=== PATIENT | female | born 1960 | race Caucasian/White ===

== ENCOUNTER 2020-01-04 15:14 | Inpatient (IN) ==
[2020-01-04] MEDS ORDERED: ICU PROTOCOL FOR HYPERGLYCEMIA PRN (17:38)
[2020-01-04] MEDS ORDERED: ACETAMINOPHEN 325 MG TAB PO PRN (17:48)
[2020-01-04] MEDS ORDERED: MEROPENEM CONSULT ACITVE PRN (17:52)
--- NOTE | 2020-01-04 17:52 | Critical Care Consultation ---
Date of Consultation January 04, 2020 Assessment & Plan (1) Sepsis: Chest x-ray 01/04/2020 personally reviewed: Portable film, good respiratory effort, right costophrenic angle is blunted, left costophrenic angle is clean, increased cardiac silhouette, increased vascular marking, right upper lobe haziness appreciated. CT chest 01/04/2020 personally reviewed: Increased interstitial marking, cystic bronchiectasis appreciated bilateral upper lobes more on the right side there is consolidative process versus scarring appreciated in the right upper lobe, diffuse groundglass opacity bilaterally, right-sided pleural effusion, and significant mediastinal lymphadenopathy. No previous CAT scan to compare. --Right-sided hydronephrosis Likely secondary to obstruction from kidney stone Urology has been consulted For possible OR today Continue with broad-spectrum antibiotic Follow-up urine culture Follow-up septic work-up, ESR 77 --Right upper lobe pneumonia Patient has some cystic as well as bronchiectatic changes appreciated bilateral upper lobes more on the right side Follow-up nasal MRSA, based on I will decide whether patient will need vancomycin Sputum culture Rapid COVID-19 negative at [facility] 01/04/2020, no lymphopenia Influenza A and B negative --Acute on chronic hypoxic respiratory failure Multifactorial Component of CHF as well as pneumonia Continue with antibiotic Diuretics as tolerated to keep negative balance Follow-up BNP, 2D echo --COPD Active smoker Not taking any inhalers at home Has been on chronic prednisone since May, she states that she is taking 20 mg and gradually titrating down to 10. --Diabetes type 2 Continue with ICU hyperglycemia protocol --Prophylaxis VTE: IPC's as patient might need to go to the OR GI: Protonix Lines: Peripheral Diet: N.p.o. Plan: Continue with antibiotic. Follow-up nasal MRSA, follow-up repeat Covid Follow-up urine culture Give 1 dose of Lasix Follow-up 2D echo I have personally spent 62 minutes of critical care time in the direct management of this patient. This is a life/limb threatening event. This includes time spent evaluating patient, direct bedside care, chart review, placing orders, interpretation of diagnostic studies, discussion with consultants, patient, and family members, as well as other required patient management activities. This time is exclusive of all separately billable procedures, and teaching time and separate from and in addition to any other critical care service time. Please note the above document was generated using voice recognition software. It may contain grammatical, syntax or spelling errors. (2) Hydronephrosis: (3) Chronic respiratory failure with hypoxia: (4) Diabetes: (5) Pneumonia: History of Present Illness Attending Physician: Cristina Lilly DO History of Present Illness 59-year-old female past medical history of diabetes type 2, COPD with chronic hypoxic respiratory failure on 4 L nasal cannula at home, history of kidney stones presented to the ED at [facility] for low back pain. Work-up over there showed right-sided hydronephrosis with increase in size of the kidney stone. DC but do not have urologist over there plan was to transfer the patient here so that she can have stent placement done. COVID-19 rapid done at [facility] was negative. Patient states that she never had back pain like this before. She has history of kidney stones but never like this. Subjective fevers. Denies any cough, no chills. No recent travel history. She had states that she has been home since the Covid started back in April. No headache, no blurry vision, no dizziness, no palpitation. No nausea or vomiting. Social history: Greater than [id number] active smoker, denies any illicit drug use, no alcohol use Allergies Allergy/AdvReac Type Severity Reaction Status Date / Time No Known Allergies Allergy Mild Verified 03/26/03 20:51 Home Medications Home Medications Medication Instructions Recorded Confirmed Type aspirin 81 mg PO 01/04/20 History glimepiride 4 mg PO DAILY 01/04/20 01/04/20 History metformin 1,000 mg PO BID 01/04/20 01/04/20 History prednisone 20 mg PO DAILY 01/04/20 01/04/20 History Patient History Social History Smoking Status: Current every day smoker Cigarettes Per Day: 2; Hx Alcohol Use: Yes Hx Substance Use: No Preferred Language: Faroese Communication Ability: Effective Public Health Microbiologist Required: No Beliefs That Will Affect Care: None Current Living Situation: Spouse Other Information That Helps Us Care for You: No Feels Safe at Home: Yes Safety Concerns: Feels Safe At This Time Assistive Devices: Oxygen - Continuous and Wheelchair Review of Systems Review of Systems: All systems reviewed & are unremarkable except as noted in HPI & below Physical Exam Physical Exam: Constitutional: No acute distress HEENT: EOMI, PERRLA Respiratory system: Decreased air entry bilaterally, mild crackles bilateral lower lobes, no wheeze, no rhonchi CVS: S1-S2 positive, no murmurs or gallops, tachycardia Abdomen: Soft, nontender, nondistended, positive bowel sounds x4, obese, positive CVA tenderness on the right side Extremities: +2 pulses bilaterally radialis/ dorsalis pedis, no cyanosis, +2 pitting edema bilateral lower extremity, more on the right side Neuro: Awake alert oriented x3 Psych: Normal mood and affect, pleasant mood G/U: Positive Stephens Skin: no rashes, warm and dry Lymphatic: no cervical or axillary lymphadenopathy Coding Level of Care Code Critical Care 1st 30-74 mins Diagnoses Sepsis A41.9 Hydronephrosis N13.30 Chronic respiratory failure with hypoxia J96.11 Diabetes E11.9 Pneumonia J18.9 Time Spent (min) 62
[2020-01-04] MEDS ORDERED: ICU PROTOCOL FOR HYPERGLYCEMIA SCH (18:15)
--- NOTE | 2020-01-04 18:15 | XRay Report ---
XR chest 1V portable CLINICAL HISTORY: Shortness of breath COMPARISON STUDY: No previous studies for comparison. FINDINGS: There is no pneumothorax. A small right pleural effusion is present. There is diffuse inter stitial thickening. This also mild right upper lung airspace opacity suggestive of pneumonia. Note is made of cardiomegaly. IMPRESSION: 1. Right upper lung airspace opacity suggestive of pneumonia. Radiographic follow-up to ensure resolu tion is recommended. 2. Diffuse interstitial thickening which may reflect superimposed pulmonary edema or infectious proce ss. 3. Small right pleural effusion. ACT 112: Negative or not required by law. Electronically signed by: Vinod Lyman M.D. 01/04/2020 6:13 PM
[2020-01-04] MEDS ORDERED: MEROPENEM 500 MG in SYRINGE 0 ML IV ONE (18:30)
[2020-01-04 18:40] LABS: Basophils # (auto) 0.02 K/uL (0-0.2); Basophils % (auto) 0.1 %; Eosinophils # (auto) 0.05 K/uL (0-0.5); Eosinophils % (auto) 0.3 %; Hematocrit (blood only) 42.7 % (37-47); Immature Granulocytes # (auto) 0.13 K/uL (0.00-0.02); Immature Granulocytes % (auto) 0.9 %; Lymphocytes # (auto) 1.47 K/uL (1.2-3.4); Lymphocytes % (auto) 9.9 %; Mean Corpuscular Hemoglobin 30.4 pg (25-34); Mean Corpuscular Hgb Conc 32.8 g/dL (32-36); Mean Corpuscular Volume 92.6 fL (80-100); Mean Platelet Volume 10.7 fL (7.4-10.4); Monocytes # (auto) 1.21 K/uL (0.11-0.59); Monocytes % (auto) 8.1 %; Neutrophils # (auto) 12.03 K/uL (1.4-6.5); Neutrophils % (auto) 80.7 %; Platelet Count 387 K/uL (130-400); RDW Coefficient of Variation 15.3 % (11.5-14.5); RDW Standard Deviation 51.4 fL (36.4-46.3); Red Blood Count 4.61 M/uL (4.2-5.4); White Blood Count 14.91 K/uL (4.8-10.8)
[2020-01-04 18:44] LABS: Appearance Urine Turbid (Clear); Bacteria Urine Automated 2+ (Negative); Bilirubin Urine Negative (Negative); Blood Urine 3+ (Negative); Color Urine Yellow; Epithelial Cell Urine Auto >30 /lpf (0-5); Glucose Urine UA Negative (Negative); Ketones Urine Negative (Negative); Leukocyte Esterase Urine 3+ (Negative); Nitrite Urine Negative (Negative); Protein Urine Trace (Negative); Specific Gravity Urine 1.011 (1.000-1.030); Urobilinogen Urine Negative (Negative); WBC Urine Automated >30 /hpf (0-5)
[2020-01-04 19:03] LABS: Albumin Level 2.9 gm/dl (3.4-5.0); BUN Creatinine Ratio 22.9 (10-20); Creatinine Clr Calc Pharmacy 92.1 ml/min; Est GFR (African American) 111.8; Est GFR (Non-African American) 96.4; Potassium 4.1 mmol/L (3.5-5.1)
[2020-01-04 19:04] LABS: Influenza A virus by PCR Negative (Negative); Influenza B virus by PCR Negative (Negative)
[2020-01-04 19:10] LABS: Albumin Globulin Ratio 0.6 (0.9-2); Bilirubin,Total 0.4 mg/dl (0.2-1); C Reactive Protein 7.81 mg/dl (0-0.29); Total Protein 7.9 gm/dl (6.4-8.2)
[2020-01-04] MEDS: ICU ELECTROLYTE REPLACEMENT PROTOCOL SCH (19:20)
[2020-01-04 19:27] LABS: Beta-Hydroxybutyrate 3.01 mg/dl (0.2-2.81)
[2020-01-04] MEDS ORDERED: NovoLIN-R BOLUS FROM BAG IV ONE (19:30)
[2020-01-04] MEDS ORDERED: INSULIN REGULAR 250 UNITS in SODIUM CHLORIDE 0.9% 247.5 ML IV SCH (19:30)
[2020-01-04] MEDS ORDERED: FUROSEMIDE 40 MG in SYRINGE 0 ML IV ONE (19:45)
[2020-01-04] MEDS ORDERED: INSULIN ASPART 100 UNITS/ML 3 ML PEN SC SCH (21:00)
[2020-01-04] MEDS ORDERED: PHARMACY GLYCEMIC MGMT CONSULT PRN (21:47)
[2020-01-04] MEDS: MoRPHine SULFATE 2 MG/ML CARP IV PRN (21:50)
--- NOTE | 2020-01-04 21:55 | History & Physical Report ---
Date of Service January 04, 2020 Assessment & Plan (1) Sepsis: Concern for this at [facility] VSS now s/p zosyn, vanco Continue abx COVID neg at [facility] Flu neg (2) Hydronephrosis: Likely secondary to obstruction from kidney stone Case was reported to have been d/w Dr. Hebert by Dr. Olsen at [facility] prior to transfer For possible OR tonight vs tomorrow Continue with abx Urine cx pending ESR 77 (3) Chronic respiratory failure with hypoxia: Pt has been on home O2 and steroids since April/May Has not had pulm workup due to COVID Now with CHF, PNA Abx, diuretics ECHO pending COPD dx as well, no hx of home inhaler use (4) Diabetes: Insulin drip A1c pending (5) Pneumonia: Noted on CXR Abx as per ICU (6) DVT prophylaxis: As per ICU Admission and Anticipated Discharge Date Admission Date: January 04, 2020 History of Present Illness Primary Care Provider: Tanya Hurd MD Pt was transferred from [facility] today for sepsis and need for urgent urologic eval and tx for obstructing renal stone. Pt states she still has back pain, but better. She had n/v on the way to [facility], but she feels she was car sick. This was not present prior. Pt denies fever, SOB, chest pain, abd pain, n/v/c/d, LE pain or swelling. Pt has been having ongoing SOB requiring O2 for several months. She was started on home O2 and was to have a pulm eval, however this did not happen due to COVID. She states she has not left her home since April. Pt was put on prednisone for these respiratory issues in April, but no improvement. It has not gotten worse either. Pt notes she also passed a stone last week. Pt has been on prednisone and this has caused a lot of issues with her blood sugars. Allergies Allergy/AdvReac Type Severity Reaction Status Date / Time No Known Allergies Allergy Mild Verified 03/26/03 20:51 Home Medications Home Medications Medication Instructions Recorded Confirmed Type aspirin 81 mg PO 01/04/20 History glimepiride 4 mg PO DAILY 01/04/20 01/04/20 History metformin 1,000 mg PO BID 01/04/20 01/04/20 History prednisone 20 mg PO DAILY 01/04/20 01/04/20 History Past Med/Surg History Social History Smoking Status: Current every day smoker Cigarettes Per Day: 2; Hx Alcohol Use: Yes Hx Substance Use: No Preferred Language: Slovak Communication Ability: Effective Partnership Marketing Manager Required: No Beliefs That Will Affect Care: None Current Living Situation: Spouse Other Information That Helps Us Care for You: No Feels Safe at Home: Yes Safety Concerns: Feels Safe At This Time Assistive Devices: Oxygen - Continuous and Wheelchair Review of Systems Review of Systems: Pertinent positives and negatives reviewed in HPI--all others negative Physical Exam Constitutional: WD/WN, vitals as above Eyes: normal visual sweeney by confrontation and + anicteric sclerae Neck: normal visual inspection and trachea midline Respiratory: normal respiratory effort, lungs clear to auscultation Cardiovascular: Rate/Rhythm: regular rate and regular rhythm Extremities: + edema (R>L LE edema) Gastrointestinal (Abdomen): Inspection/Auscultation: abdomen not distended Percussion/Palpation: abdomen soft; abdomen nontender Musculoskeletal: Head/Neck/Chest: normocephalic and head atraumatic peripheral pulses intact Skin: no rashes, warm and dry Neurologic: awake; not confused Speech / Cognition: normal speech Psychiatric: A+Ox3, euthymic affect Results & Data Results & Data ([facility]) Vital Signs (Past 12 Hours) Vital Signs Temp Pulse Pulse Resp BP BP Pulse Ox 01/04/20 21:04 116 H 18 92/76 L 96 01/04/20 21:03 114 H 18 97 01/04/20 21:00 115 H 18 97 01/04/20 20:01 108 H 18 148/86 H 96 01/04/20 20:00 109 H 18 96 01/04/20 19:00 111 H 16 110/82 96 01/04/20 18:03 36.6 C 111 H 16 128/80 91 01/04/20 18:00 111 H 125/75 94 01/04/20 17:41 121 H 128/80 91 Code Status & VTE Plan Code Status Full code VTE Prophylaxis Plan VTE Prophylaxis will be ordered: Yes PG Care Time/CCT Total # of Minutes Spent Total Time Spent with Patient: Total time spent is greater than 50% in coordination of care (as documented) at patient's floor/unit and/or counseling patient: Coding Level of Care Code 59503 Initial Inpt Care Lvl 3 Diagnoses Sepsis A41.9 Hydronephrosis N13.30 Chronic respiratory failure with hypoxia J96.11 Diabetes E11.9 Pneumonia J18.9 DVT prophylaxis Z29.9
[2020-01-04] MEDS ORDERED: INSULIN GLARGINE SOLOSTAR 100 UNITS/ML 3 ML PEN SC ONE (22:00)
[2020-01-05] MEDS: MEROPENEM 500 MG in SYRINGE 0 ML IV SCH ×4 (00:08→17:58)
[2020-01-05] MEDS: MoRPHine SULFATE 2 MG/ML CARP IV PRN ×5 (00:50→17:28)
[2020-01-05] MEDS ORDERED: DEXTROSE 50% 50 ML SYRINGE IV ONE (00:57)
[2020-01-05] MEDS: INSULIN ASPART 100 UNITS/ML 3 ML PEN SC SCH ×4 (04:03→20:43)
[2020-01-05 05:02] LABS: Basophils # (auto) 0.04 K/uL (0-0.2); Basophils % (auto) 0.3 %; Eosinophils # (auto) 0.23 K/uL (0-0.5); Eosinophils % (auto) 1.7 %; Hematocrit (blood only) 40.1 % (37-47); Hemoglobin 13.2 g/dL (12.0-16.0); Immature Granulocytes # (auto) 0.16 K/uL (0.00-0.02); Immature Granulocytes % (auto) 1.2 %; Lymphocytes # (auto) 2.32 K/uL (1.2-3.4); Lymphocytes % (auto) 16.8 %; Mean Corpuscular Hemoglobin 30.1 pg (25-34); Mean Corpuscular Hgb Conc 32.9 g/dL (32-36); Mean Corpuscular Volume 91.3 fL (80-100); Mean Platelet Volume 10.2 fL (7.4-10.4); Monocytes # (auto) 1.51 K/uL (0.11-0.59); Monocytes % (auto) 10.9 %; Neutrophils # (auto) 9.59 K/uL (1.4-6.5); Neutrophils % (auto) 69.1 %; Platelet Count 359 K/uL (130-400); RDW Standard Deviation 50.3 fL (36.4-46.3); Red Blood Count 4.39 M/uL (4.2-5.4); White Blood Count 13.85 K/uL (4.8-10.8)
[2020-01-05] MEDS: ONDANSETRON INJ 2 MG/ML 2 ML VIAL IV PRN (05:27)
[2020-01-05 05:31] LABS: BUN Creatinine Ratio 27.7 (10-20); Calcium 8.9 mg/dl (8.5-10.1); Creatinine Clr Calc Pharmacy 97.9 ml/min; Est GFR (Non-African American) 98.4; Magnesium 1.7 mg/dl (1.8-2.4); Phosphorus 4.1 mg/dl (2.5-4.9); Potassium 3.7 mmol/L (3.5-5.1)
[2020-01-05] MEDS: ICU ELECTROLYTE REPLACEMENT PROTOCOL SCH ×2 (05:42→17:54)
[2020-01-05] MEDS ORDERED: MAGNESIUM SULFATE / D5W 1 GM/100 ML BAG IV STA (05:50)
[2020-01-05] MEDS ORDERED: POTASSIUM CHLORIDE / WTR 10 MEQ/100 ML PLCT IV STA (05:50)
[2020-01-05] MEDS ORDERED: MAGNESIUM SULFATE 4GM / WTR 100 ML BAG IV ONE (05:50)
--- NOTE | 2020-01-05 05:55 | Critical Care Progress Note ---
Date of Service January 05, 2020 Assessment & Plan (1) Chronic respiratory failure with hypoxia: Reason Critically Ill: 59 yo F PMHx significant for DM2, nephrolithiasis, COPD on 4LNC at baseline, current smoker with 30 pack year history who was admitted from [facility] for obstructive nephrolithiasis, pneumonia, and sepsis. Neuro - [facility] ICU: negative Sedation: none Analgesia: morphine 2mg IV q4h, acetaminophen 650 PO q4h - No focal neurologic deficits. No neurologic concerns at this time. Cardiac - - No notable cardiac history. - On 4LNC at baseline due to COPD. - No increased oxygen demand in hospital, however imaging with findings suggestive of fluid overload. - Echo performed which showed LVEF 55-60%, no regional wall motion abnormalities, normal RV function, no significant valvular pathology. - With improvement in peripheral edema and lung exam with diuretics. - Lasix 40mg IV one today. Respiratory - Chronic hypoxic respiratory failure: - Patient is currently an active smoker. - On 4LNC at baseline for COPD. - Continues to saturate well on baseline 4LNC. - On chronic prednisone therapy; weaning as below. - Continue Anoro/Ellipta, fluticasone inhalers daily. RUL Pneumonia: - On admission with CXR showing a right upper lung airspace opacity suggestive of pneumonia, as well as diffuse interstitial thickening (pulmonary edema vs. infection). - CT Chest reviewed by Dr. Quezada: - Increased interstitial markings and cystic bronchiectasis appreciated in bilateral upper lobes more prominent on the right side. Consolidative process versus scarring appreciated in the right upper lobe. Diffuse groundglass opacity bilaterally. Right-sided pleural effusion. Notable mediastinal lymphadenopathy. - Nasal MRSA negative. Influenza A and B negative. - Sputum culture pending. - Currently on meropenem for both complicated UTI and suspected pneumonia. GI - - NPO for now for OR later today. Resume DM2 diet after returning from OR. - GI prophylaxis with IV H2 luba until no longer NPO. RENAL/LYTES - Hypokalemia/Hypomagnesemia: - K 3.7 today, electrolyte replacement per protocol with added 20 IV given Lasix dosing. - Mg 1.7, given 4g Mg. Will start Mag Oxide 400mg qHS. - Daily BMP, replace lytes as needed per protocol. Complicated UTI, hydronephrosis: - On imaging at [facility] with obstructing right UPJ stone with moderate hydronephrosis. - [facility] cultures: BCx no growth after 24 hours; UCx >100,000 colonies E. coli, sensitivities to follow. - Currently on meropenem for UTI coverage, continue for now until UCx sensitivities. - R obstructive nephrolithiasis: - Transfer from [facility] for Urology intervention. - Found on imaging at outside site to have large obstructing 2.7 cm right ureteropelvic junction stone with moderate amount of hydronephrosis. - Urology consulted and appreciate recommendations. - To OR for cystoscopy, right retrograde pyelogram and right stent placement today. - Continue meropenem pending UCx sensitivities. ENDO - DM2: - At home on glimepiride 4mg daily, metformin 1000mg BID. - A1c this admission 10.9; this is in the setting of having been on prednisone daily for a significant amount of time for COPD. - Holding home DM2 medications. Continue ICU hyperglycemia protocol. - DM2 diet when no longer NPO; adaptive physical educator consult placed. - Patient will likely need medication adjustment for tighter BSG control prior to discharge. Secondary adrenal insufficiency: - Patient has been on long-term steroid therapy for COPD, likely resulting in secondary adrenal insufficiency. - On admission was on prednisone 20mg daily. Will start taper while inpatient as follows: - Have decreased prednisone to 15mg daily for one week. One week increments following of 12mg daily, 10mg daily, then 5mg daily ongoing following that. - Suspect patient will need chronic steroid therapy indefinitely at this point due to long-standing use. HEME - - Stable H&H. - Holding anticoagulation in setting of OR today. ID - Sepsis 2/2 UTI with obstructive nephrolithiasis: - Met criteria for sepsis on arrival to hospital due to tachycardia and elevated WBC count. - Urologic intervention as above for obstructive renal calculus. - Treatment with meropenem for complicated UTI. UCx currently growing >100,000 colonies E. coli, sensitivities to follow. - Continue to monitor fever curve. Patient afebrile since arrival. - Patient is hemodynamically stable and well-appearing, though having breakthrough pain. INTEGUMENTARY - - No present concerns. LINES/IV ACCESS - - PIVs intact. DVT PROPHYLAXIS - - SCDs, holding medical prophylaxis in the setting of OR later today. Code Status: FULL CODE Thank you for the consult. Please see Dr. Olsen's documentation for any changes to care plan. (2) Obstruction of right ureteropelvic junction (UPJ) due to stone: (3) Diabetes: (4) Hydronephrosis: (5) Sepsis: (6) Smoker: (7) Obesity: Admission and Anticipated Discharge Date Admission Date: January 04, 2020 Supervising Physician Co-Signing Physician Notes Dr. Diaz was resident physician during care of patient. I separately evaluated patient for rodriguez portions of the history and the exam. I was present during the critical portion of medical decision making, and I discussed the case with the resident. I generally agree with the findings and plan. Patient's hemodynamics have improved, of significant note the procalcitonin was within normal limits, I do not believe the patient is septic, she does show evidence of an E. coli urinary tract infection based off culture results from [facility] we will continue antibiotics for a complicated urinary tract infection because she is ultimately requiring instrumentation and a stent placement for her right hydroureter secondary to nephro lithiasis. She has been diuresing, the patient had already diuresed approximately 2 L prior to her echocardiogram, the right ventricle was not well visualized and while the wall motion appeared to be normal I still believe the patient is at risk for cor pulmonale, her IVC did show change with respiration however I think that also is obscured by the fact she diuresed over 2 L. Chronic respiratory failure of the patient is likely related to long-term tobacco use, there may still be a superimposed infection. As the leading concern is infection and she needs an operative intervention we will continue to hold anticoagulation which point I would consider prophylaxis or even possibly therapeutic anticoagulation because malignancy is in the differential, however with her negative troponin from the outside facility and an echo that did not show evidence of right ventricular dysfunction in the setting of improved hemodynamics with diuresis I think pulmonary embolism is rather unlikely, diuretics may be useful to increase flow through the pulmonary vascular bed which the right heart is failing however a hemodynamically significant pulmonary embolism should require a right atrial pressure greater than 8 as noted on the echo and would also likely have volume size changes. Patient remaining critically ill, awaiting stent placement. Subjective Patient without acute events overnight. Mild tachycardia, saturating well on baseline 4LNC. Comfortable while lying flat on first interview, but later in AM asked for pain medication. Does not endorse increased SOB, CP, abdominal pain, nausea or vomiting. In good spirits this AM. For OR by Urology later today. Review of Systems Review of Systems: All systems reviewed & are unremarkable except as noted in HPI & below Constitutional: no fever, no chills and no malaise Respiratory: no cough and no dyspnea Cardiovascular: no chest pain, no palpitations and no edema Gastrointestinal: no abdominal pain, no constipation and no diarrhea/loose stools Genitourinary: no dysuria and no hematuria Musculoskeletal: + back pain (breakthrough pain between morphine doses) Physical Exam Physical Exam: VITAL SIGNS - Vital signs and nursing notes were reviewed. GENERAL - 59 yo F, well developed, well nourished, in no acute distress SKIN - Without rashes. EYES - PERRL. Sclera anicteric. Palpebral conjunctiva pink and moist with no injection noted. EARS - No deformities of external structures noted on gross examination bilatera lly. NOSE - Midline and without cyanosis. No epistaxis or purulent drainage noted. MOUTH/OROPHARYNX - No perioral cyanosis. NECK - Supple to palpation. No nuchal rigidity. LUNGS - Lungs with mild basilar crackles, no wheezes. On 4LNC saturating well. CARDIAC - Tachycardia, regular rhythm. No murmur, rubs, or gallops appreciated. ABDOMEN - Soft, nontender, nondistended, normal bowel sounds. EXTREMITIES - No clubbing or peripheral cyanosis. 1+ peripheral edema. Radial and dorsalis pedis pulses palpated bilaterally. NEUROLOGIC - No focal neurological deficits noted on exam. Results & Data Results & Data ([facility]) Vital Signs (Past 12 Hours) Vital Signs Temp Pulse Pulse Resp BP BP Pulse Ox 01/05/20 04:00 36.6 C 103 H 106/69 96 01/05/20 03:00 107 H 102/64 94 01/05/20 02:29 107 H 115/74 95 01/05/20 02:01 106 H 115/74 95 01/05/20 02:00 102 H 95 01/05/20 01:00 112 H 91/71 L 94 01/05/20 00:00 114 H 18 112/71 95 01/04/20 23:00 117 H 20 97/67 L 96 01/04/20 22:01 122 H 118/69 94 01/04/20 22:00 121 H 22 94 01/04/20 21:45 115 H 105/74 95 01/04/20 21:04 116 H 18 92/76 L 96 01/04/20 21:03 114 H 18 97 01/04/20 21:00 115 H 20 97 01/04/20 20:01 108 H 18 148/86 H 96 01/04/20 20:00 109 H 20 96 01/04/20 19:00 111 H 18 110/82 96 01/04/20 18:03 36.6 C 111 H 16 128/80 91 01/04/20 18:00 111 H 125/75 94 Critical Care Time Critical Care Time: Yes Total Critical Care Time: 40 I have personally spent 40 minutes of critical care time in the direct management of this patient. This is a life/limb threatening event. This includes time spent evaluating patient, direct bedside care, chart review, p lacing orders, interpretation of diagnostic studies, discussion with consultants, patient, and/or family members regarding treatment decisions, as well as other required patient management activities. This time is exclusive of all separately billable procedures, and teaching time and separate from and in addition to any other critical care service time. Resident Activity Tracking Resident Involvement: Resident Care Provided Care Provided: Adult [facility] Medicine
[2020-01-05] MEDS ORDERED: POTASSIUM CHLORIDE CRTAB 20 MEQ TABCR PO ONE ×2 (06:05→10:00)
[2020-01-05] MEDS: MAGNESIUM SULFATE / D5W 1 GM/100 ML BAG IV SCH ×4 (06:18→11:53)
[2020-01-05 06:50] LABS: Estimated Average Glucose 266 mg/dl; Hemoglobin A1C 10.9 % (4.5-5.6)
[2020-01-05] MEDS ORDERED: predniSONE 5 MG TAB PO ONE (07:15)
--- NOTE | 2020-01-05 07:49 | Urology Consultation ---
Date of Consultation January 05, 2020 Assessment & Plan (1) Obstruction of right ureteropelvic junction (UPJ) due to stone: (2) Sepsis: 59 year-old female patient, with multiple comorbidities, admitted with suspected UTI, sepsis, and lower back pain secondary to large obstructing 2.7 cm right UPJ stone with moderate amount of hydronephrosis. -Patient afebrile. -Labs reviewed - white count elevated, creatinine normal. -Urine and blood cultures pending, continue with broad spectrum IV antibiotics and supportive care. -Keep NPO. Findings reviewed with Dr. Colbert. Given her intractable lower back pain, suspected UTI and sepsis, in the context of an obstructing 2.[address] one, will proceed with OR for cystoscopy, right retrograde pyelogram and right stent placement. Risks and benefits to be reviewed with patient by Dr. Colbert. OR notified. Preoperative CXR in chart. Patient currently covered with routine IV Meropenem preoperatively. ATTENDING NOTE: Agree with note. Independently evaluated and assessed and agree with findings and documentation. Major complaint is bladder pain and severe back pain that comes in waves and travels down middle of back down to stomach and flank. Agree with exam. Risks and benefits discussed at length for procedure. These include bleeding, infection, injury to surrounding tissues or organs, and risks associated with anesthesia. Patient states understanding and agrees to proceed. Will sign consent and schedule. Plan for cystoscopy with right stent placement. History of Present Illness Reason for Consultation: Obstructing stone Attending Physician: Cristina Lilly DO History of Present Illness 59 year-old female patient, with past medical history of diabetes type 2, COPD with chronic hypoxic respiratory failure on 4 L nasal cannula at home, and history of kidney stones, admitted as a transfer from [facility] secondary to large obstructing right UPJ stone. Patient initially presented to [facility] with intractable lower back pain with associated nausea/vomiting. Urology consulted due to obstructing right UPJ stone. Patient does have known history of kidney stones, passed a stone spontaneously last week. Followed with Dr. Zheng many years ago for urology, has required lithotripsy in the past. No known family history of kidney stones. Chart review: Afebrile BP 106/69 Wbc 13.85 Hgb 13.2 Creatinine 0.64 Urinalysis +2 leukocytes, positive nitrates, >100 wbc, >100 rbc, positive bacteria. Urine and blood cultures pending. Currently on IV Meropenem. Imaging: CT abd/pelvis reviewed and notable for 2.7 cm obstructing right UPJ stone with moderate right hydronephrosis. Patient currently feeling better since hospital admission. She reports her breathing has improved, continues on 4L oxygen via Nasal Cannula. Does continue to have on-going lower back pain. Pain at tolerable level with IV Morphine. Did have associated nausea and vomiting on admission however she states she is no longer experiencing these symptoms. Denies abdominal pain. Denies fevers or chills. States she did have hematuria and dysuria prior to catheter insertion. Also experienced urinary urgency/frequency. Tolerating catheter well without pain. She has not had anything to eat or drink since midnight. Denies additional urologic concerns today. Allergies Allergy/AdvReac Type Severity Reaction Status Date / Time No Known Allergies Allergy Mild Verified 03/26/03 20:51 Home Medications Home Medications Medication Instructions Recorded Confirmed Type aspirin 81 mg PO 01/04/20 History glimepiride 4 mg PO DAILY 01/04/20 01/04/20 History metformin 1,000 mg PO BID 01/04/20 01/04/20 History prednisone 20 mg PO DAILY 01/04/20 01/04/20 History Patient History Medical History Chronic respiratory failure with hypoxia Diabetes Obesity Smoker Social History Smoking Status: Current every day smoker Cigarettes Per Day: 2; Hx Alcohol Use: Yes Hx Substance Use: No Preferred Language: Icelandic Communication Ability: Effective Superintendent Terminal Required: No Beliefs That Will Affect Care: None Current Living Situation: Spouse Other Information That Helps Us Care for You: No Feels Safe at Home: Yes Safety Concerns: Feels Safe At This Time Assistive Devices: Oxygen - Continuous Review of Systems Constitutional: as per Subjective / HPI; no fever and no chills Eyes: no problem reported Ear, Nose, Mouth, Throat: no dizziness Respiratory: as per Subjective / HPI Cardiovascular: no chest pain and no edema Gastrointestinal: as per Subjective / HPI Genitourinary: as per Subjective / HPI Musculoskeletal: as per Subjective / HPI Neurologic: no dizziness Endocrine: no fatigue Hematologic / Lymphatic: no easy bleeding and no easy bruising Physical Exam Constitutional: well developed and well nourished; no acute distress and not ill appearing ENMT: Ears: no external ear abnormality Nose: no external nose abnormality Neck: normal visual inspection and trachea midline Respiratory: normal respiratory effort and able to speak in complete sentences; no respiratory distress and no audible wheezes Currently on 4L Oxygen via nasal cannula. Cardiovascular: Extremities: no calf tenderness and no edema Gastrointestinal (Abdomen): Inspection/Auscultation: abdomen normal to inspection; abdomen not distended Percussion/Palpation: abdomen soft; abdomen nontender and no guarding Musculoskeletal: Pain to lower lumbar spine with palpation. Skin: No visible rashes, lesions, or wounds noted. Neurologic: moves all extremities and awake Psychiatric: Orientation: alert, oriented x 3 and cooperative Affect: euthymic affect Genitourinary: no CVA tenderness Stephens catheter intact draining concentrated yellow urine. Results & Data ([facility]) Vital Signs (Past 12 Hours) Vital Signs Temp Pulse Resp BP Pulse Ox 01/05/20 04:00 36.6 C 103 H 106/69 96 01/05/20 03:00 107 H 102/64 94 01/05/20 02:29 107 H 115/74 95 01/05/20 02:01 106 H 115/74 95 01/05/20 02:00 102 H 95 01/05/20 01:00 112 H 91/71 L 94 01/05/20 00:00 114 H 18 112/71 95 01/04/20 23:00 117 H 20 97/67 L 96 01/04/20 22:01 122 H 118/69 94 01/04/20 22:00 121 H 22 94 01/04/20 21:45 115 H 105/74 95 01/04/20 21:04 116 H 18 92/76 L 96 01/04/20 21:03 114 H 18 97 01/04/20 21:00 115 H 20 97 01/04/20 20:01 108 H 18 148/86 H 96 01/04/20 20:00 109 H 20 96 PG Care Time/CCT Total # of Minutes Spent Total Time Spent with Patient: Total time spent is greater than 50% in coordination of care (as documented) at patient's floor/unit and/or counseling patient: Coding Level of Care Code 15324 Inpt Consult Level 4 Diagnoses Obstruction of right ureteropelvic junction (UPJ) due to stone N20.1 Sepsis A41.9
[2020-01-05] MEDS: FLUTICASONE FUROATE 100MCG 14 PUFFS/INHALER INH SCH (08:07)
[2020-01-05] MEDS: UMECLIDINIUM/VILANTEROL 62.5/25MCG 7 PUFFS/INHALER INH SCH (08:07)
[2020-01-05] MEDS ORDERED: COUGH DROP (SUGAR FREE) LOZ 24 LOZ/1 BOX BUCCAL ONE (10:09)
[2020-01-05] MEDS ORDERED: FUROSEMIDE 40 MG in SYRINGE 0 ML IV ONE (10:15)
[2020-01-05] MEDS: POTASSIUM CHLORIDE / WTR 10 MEQ/100 ML PLCT IV SCH ×2 (10:32→11:46)
[2020-01-05] MEDS ORDERED: fentaNYL citrate 100 MCG/2 ML VIAL IV PRN (11:57)
[2020-01-05] MEDS ORDERED: ONDANSETRON INJ 2 MG/ML 2 ML VIAL IV PRN (11:57)
[2020-01-05] MEDS ORDERED: ePHEDrine sulfate 50 MG/ML AMP IV PRN (11:57)
[2020-01-05] MEDS ORDERED: PHENYLEPHRINE 100MCG/ML 5ML SYR IV PRN (11:57)
[2020-01-05] MEDS ORDERED: ATROPINE SULFATE 0.1 MG/ML 10ML SYR IV PRN (11:57)
[2020-01-05] MEDS ORDERED: HYDROmorphone INJ 1 MG/ML SYRINGE IV PRN (11:57)
[2020-01-05] MEDS ORDERED: MEPERIDINE HCL 25 MG/ML CARP/VIAL IV PRN (11:57)
[2020-01-05] MEDS ORDERED: LABETALOL HCL IV 5 MG/ML 20ML IV PRN (11:57)
--- NOTE | 2020-01-05 11:59 | Anesthesiology Consultation ---
Date of Service January 05, 2020 Covid 19 negative on 01/05/20. Assessment & Plan (1) Encounter for pre-operative examination: (2) Encounter for pre-operative examination: Chart Review Chart Review: Acceptable Risk for Surgery and Patient NOT seen in Pre Admission Testing Consults Requested none History Surgery Operation Date: 01/05/20 13:35 Proposed Procedures p Cystoscopy, Right Stent Insertion - Earnest Colbert, Height/Weight Height: 5 ft Weight: 91.9 kg Allergies Allergy/AdvReac Type Severity Reaction Status Date / Time No Known Allergies Allergy Mild Verified 03/26/03 20:51 Medications Home Medications Medication Instructions Recorded Confirmed Last Taken aspirin 81 mg PO 01/04/20 Unknown glimepiride 4 mg PO DAILY 01/04/20 01/04/20 Unknown metformin 1,000 mg PO BID 01/04/20 01/04/20 Unknown prednisone 20 mg PO DAILY 01/04/20 01/04/20 Unknown Active Medications Generic Name Dose Route Start Last Admin Trade Name Freq PRN Reason Stop Dose Admin Fluticasone Furoate 1 puffs 01/05/20 09:00 01/05/20 08:07 Fluticasone Furoate 100mcg 14 Puffs/Inhaler INH 02/04/20 08:59 1 puffs DAILY LOBITO Administration Meropenem 500 mg/ Syringe 10 mls @ 2 mls/min 01/05/20 00:00 01/05/20 11:48 IV 01/14/20 17:59 2 mls/min Q6H LOBITO Administration Protocol Insulin Aspart 0 units 01/05/20 03:00 01/05/20 11:53 Insulin Aspart 100 Units/Ml 3 Ml Pen SC 02/04/20 02:59 3 units Q6 LOBITO Administration Protocol Miscellaneous 1 ea 01/04/20 18:00 01/05/20 05:42 Icu Electrolyte Replacement Protocol N/A 01/11/20 17:59 1 ea BID@18 LOBITO Administration Protocol Morphine Sulfate 2 mg 01/04/20 17:48 01/05/20 14:01 Morphine Sulfate 2 Mg/Ml Carp IV 01/18/20 17:47 2 mg Q4 PRN Administration Pain Ondansetron HCl 4 mg 01/05/20 05:21 01/05/20 05:27 Ondansetron Inj 2 Mg/Ml 2 Ml Vial IV 02/04/20 05:20 4 mg Q4H PRN Administration Nausea Umeclidinium/Vilanterol 1 puffs 01/05/20 09:00 01/05/20 08:07 Umeclidinium/Vilanterol 62.5/25mcg 7 Puffs/Inhaler INH 02/04/20 08:59 1 puffs DAILY LOBITO Administration Past Medical History Medical History Chronic respiratory failure with hypoxia Diabetes Obesity Smoker Social History Smoking Status: Current every day smoker tobacco type: cigarettes Smoking cigarettes per day: 2 Hx Alcohol Use: Yes alcohol intake frequency: holidays/special occasions only Hx Substance Use: No Physical Exam Vital Signs Last Vital Signs Temp 36.9 C 01/05/20 12:20 Pulse 113 H 01/05/20 13:01 Resp 20 01/05/20 12:20 BP 124/77 01/05/20 13:01 Pulse Ox 93 01/05/20 13:01 Testing Laboratory Results 01/05/20 04:39 01/05/20 04:39 Hemoglobin A1c 10.9 % (4.5-5.6) H 01/05/20 04:39 Urine Color Yellow 01/04/20 18:10 Urine Appearance Turbid (Clear) A 01/04/20 18:10 Urine pH 6.0 (4.5-7.5) 01/04/20 18:10 Ur Specific [place] 1.011 (1.000-1.030) 01/04/20 18:10 Urine Protein Trace (Negative) H 01/04/20 18:10 Urine Glucose (UA) Negative (Negative) 01/04/20 18:10 Urine Ketones Negative (Negative) 01/04/20 18:10 Urine Nitrite Negative (Negative) 01/04/20 18:10 Ur Leukocyte Esterase 3+ (Negative) H 01/04/20 18:10 Urine WBC (Auto) >30 /hpf (0-5) H 01/04/20 18:10 Urine RBC (Auto) 10-30 /hpf (0-4) H 01/04/20 18:10 U Hyaline Cast (Auto) 5-10 /lpf (0-5) H 01/04/20 18:10 U Epithel Cells (Auto) >30 /lpf (0-5) H 01/04/20 18:10 Urine Bacteria (Auto) 2+ (Negative) H 01/04/20 18:10 01/04/20 18:10 Urine Culture - Final Urine,Clean Catch Three types of organisms present, all moderate counts. Repeat collection recommended. No further identifications or sensitivities to follow. 01/05/20 01/05/20 11:52 03:07 POC Glucose 221 H 108 H Chest X-Ray Date: 01/04/20 XR chest 1V portable CLINICAL HISTORY: Shortness of breath COMPARISON STUDY: No previous studies for comparison. FINDINGS: There is no pneumothorax. A small right pleural effusion is present. There is diffuse interstitial thickening. This also mild right upper lung airspace opacity suggestive of pneumonia. Note is made of cardiomegaly. IMPRESSION: 1. Right upper lung airspace opacity suggestive of pneumonia. Radiographic follow-up to ensure resolution is recommended. 2. Diffuse interstitial thickening which may reflect superimposed pulmonary edema or infectious process. 3. Small right pleural effusion. ACT 112: Negative or not required by law. Electronically signed by: Vinod Lyman M.D. 01/04/2020 6:13 PM Dictated: 01/04/201811Transcribed: 01/04/201811
--- NOTE | 2020-01-05 12:10 | XCELERA ---
[id number]
--- NOTE | 2020-01-05 12:24 | XRay Report ---
KUB HISTORY: Follow up study in a patient with renal calculi Right UPJ stone COMPARISON: CT chest, abdomen pelvis from outside hospital 01/04/2020. FINDINGS: Gas-filled loops of large and small bowel with moderate fecal retention of the right hemico king. The right renal shadow is obscured by bowel gas and colonic stool. Left renal calculi redemonst rated measuring up to 4 mm. No definite ureteral calculi identified. No pneumoperitoneum or pneumatos is. Degenerative changes of the spine, pelvis and hips. No fracture. IMPRESSION: 1. Limited exam secondary to obscuring bowel gas. 2. Left nephrolithiasis without ureteral calculi identified. 3. The known large right renal calculi are better seen on comparison CT. ACT 112: Negative or not required by law. The above report was generated using voice recognition software. It may contain grammatical, syntax o r spelling errors. Electronically signed by: Waylon Menard M.D. 01/05/2020 12:23 PM
[2020-01-05] MEDS ORDERED: INSULIN GLARGINE SOLOSTAR 100 UNITS/ML 3 ML PEN SC ONE ×2 (13:00→17:00)
--- NOTE | 2020-01-05 13:32 | Pharmacy Report ---
Pharmacy Glycemic Short Note 2 - Date of Service January 05, 2020 - Glycemic Short BSG Results (Last 24 hours): 01/04/20 01/04/20 01/04/20 17:54 17:55 18:21 Glucose 303 H* POC Glucose 309 H* 336 H* 01/04/20 01/04/20 01/04/20 20:24 21:33 22:36 Glucose POC Glucose 213 H 185 H 175 H 01/04/20 01/05/20 01/05/20 23:31 00:48 01:10 Glucose POC Glucose 153 H 95 102 H 01/05/20 01/05/20 01/05/20 03:07 04:39 11:52 Glucose 112 H POC Glucose 108 H 221 H OUTPATIENT ANTIDIABETIC REGIMEN: * metformin, glimepiride ASSESSMENT: * 59 year-old female patient, with multiple comorbidities, admitted with suspected UTI, sepsis, and lower back pain secondary to large obstructing stone/hydronephrosis. * Type 2 diabetic managed only on oral agents at home. A1c on admission elevated at 10.9% * Initially started on insulin drip yesterday, mi'ed after about ~3-4 hours (running at 3.5 units/hr) * BSGs overnight on lower end of range 90-100s. BSG this AM 108 mg/dL - plan to hold basal * Lunch BSG trending up to 221 mg/dL, however patient now started on prednisone which likely is contributing to BSG value. Patient NPO for OR today. Anticipate BSGs to continue to trend up as now behind with steroids started. Plan to give basal 10 units x 1 now before OR and add scale for basal at HS PLAN FOR INPATIENT GLYCEMIC CONTROL: * Hold outpatient oral diabetes medications * Basal insulin * Lantus 10 units x 1 * then Lantus 10-15 units SQ BID * Bolus insulin * NovoLog per scale ACHS or Q6hrs while NPO * Goal Range: Low 120 mg/dL - High 160 mg/dL * Correction Factor: 20 mg/dL/unit * Nutritional / Prandial insulin per carb ratio of 1 unit per 7 grams CHO consumed PLAN FOR DISCHARGE: * tbd
[2020-01-05] MEDS ORDERED: fentaNYL citrate 100 MCG/2 ML VIAL ONE (15:22)
[2020-01-05] MEDS ORDERED: KETAMINE 50 MG/5 ML SYRINGE ONE (15:28)
[2020-01-05] MEDS ORDERED: PROPOFOL IV EMULSION 10 MG/ML 20 ML VIAL IV ONE (15:48)
[2020-01-05] MEDS ORDERED: ONDANSETRON INJ 2 MG/ML 2 ML VIAL ONE (15:48)
[2020-01-05] MEDS ORDERED: LIDOCAINE HCL 2% 2 ML VIAL/AMP(20MG/ML) INFIL ONE (15:48)
--- NOTE | 2020-01-05 15:52 | Operative Report ---
PG Post Operative Report Pre & Post Diagnosis Operation Date: 01/05/20 13:35 Pre-Op Diagnosis: SEPSIS, RIGHT PYELONEPHRITIS, OBSTRUCTING STONE Post-Op Diagnosis: SEPSIS, RIGHT PYELONEPHRITIS, OBSTRUCTING STONE I identified the patient and participated in the time-out.: Yes Procedure Operation Date: 01/05/20 13:35 Actual Procedures p Cystoscopy, Right retrograde pyelogram and Stent Insertion - Earnest Colbert, Surgeon Earnest Colbert, II, DO Dolly Driver None Estimated Blood Loss 1 Findings Consistent with Post-Op Diagnosis Stent placed in good position. Specimens None Drains 6 Fr Multilength 20 Fr Silicon catheter Anesthesia Type MAC Complications none Disposition Disposition: Recovery Room Indications Patient with obstruction. Risks and benefits discussed at length. Description of Procedure Patient was consented and brought back to the operating room. Patient was placed under anesthesia in the supine position and moved to the dorsal lithotomy position. Patient was prepped and draped in the regular sterile fashion. A time out was completed. A 30degree Cystoscope was placed into the bladder and the entire bladder was examined. The UO's were identified. The UO was cannulized with a catheter and a retrograde pyelogram was completed. A wire was then placed. With the wire in place, a 6 Fr Double J stent was placed. It was confirmed with fluoroscopy. With the stent in place, the bladder was emptied. The scope was removed. A 20 Fr Catheter was placed. The patient was cleaned, aroused from anesthesia, and transferred to the pacu in stable condition having tolerated the procedure well with no complications. I was present and participated in all aspects of the procedure. The patient will be monitored in the PACU until transferred. I attest to the content of the Intraoperative Record and any orders documented therein. Any exceptions are noted below.
--- NOTE | 2020-01-05 16:05 | Fluoroscopy Report ---
INTRAOPERATIVE RADIOGRAPHS CLINICAL HISTORY: Right-sided laser lithotripsy and ureteral stent placement. Fluoroscopy time: 20 seconds FINDINGS: 2 spot fluoroscopic views of the right abdomen are correlated with KUB dated 01/05/2020. The images show the proximal and distal ends of a right ureteral stent in appropriate position. Contrast in the right renal collecting systems shows at least moderate hydronephrosis. IMPRESSION: Intraoperative images from a right ureteral stent placement procedure as above. Electronically signed by: Jesus Yee M.D. 01/05/2020 4:04 PM
--- NOTE | 2020-01-05 16:13 | Anesthesiology Progress Note ---
Date of Service January 05, 2020 Anesthesia Post Procedure Vital Signs Vital Signs: Temp Pulse Pulse Resp BP BP Pulse Ox 01/05/20 16:05 36.8 C 109 H 16 115/94 90 01/05/20 13:01 113 H 124/77 93 01/05/20 13:00 111 H 94 01/05/20 12:20 36.9 C 117 H 20 120/84 95 01/05/20 12:14 120 H 120/84 92 01/05/20 12:00 112 H 92 01/05/20 11:00 109 H 123/79 94 01/05/20 10:00 113 H 128/84 94 01/05/20 09:00 36.7 C 106 H 113/69 96 01/05/20 08:00 109 H 104/70 94 01/05/20 07:00 107 H 117/79 95 01/05/20 04:00 36.6 C 103 H 106/69 96 01/05/20 03:00 107 H 102/64 94 01/05/20 02:29 107 H 115/74 95 01/05/20 02:01 106 H 115/74 95 01/05/20 02:00 102 H 95 01/05/20 01:00 112 H 91/71 L 94 01/05/20 00:00 114 H 18 112/71 95 01/04/20 23:00 117 H 20 97/67 L 96 01/04/20 22:01 122 H 118/69 94 01/04/20 22:00 121 H 22 94 01/04/20 21:45 115 H 105/74 95 01/04/20 21:04 116 H 18 92/76 L 96 01/04/20 21:03 114 H 18 97 01/04/20 21:00 115 H 20 97 01/04/20 20:01 108 H 18 148/86 H 96 01/04/20 20:00 109 H 20 96 01/04/20 19:00 111 H 18 110/82 96 01/04/20 18:03 36.6 C 111 H 16 128/80 91 01/04/20 18:00 111 H 125/75 94 01/04/20 17:41 121 H 128/80 91 Pain Intensity Right Flank: Pain Intensity: 3 Transfer of Care Handoff Completed per policy Notes Mental Status: alert / awake / arousable and participated in evaluation Patient Amnestic to Procedure: Yes Nausea / Vomiting: adequately controlled Pain: adequately controlled Airway Patency, RR, SpO2: stable & adequate BP & HR: stable & adequate Hydration State: stable & adequate Anesthetic Complications: no major complications apparent and Pt Satisfied with anesthetic care
[2020-01-05] MEDS ORDERED: DIATRIZOATE MEGLUMINE 30% 100ML VIAL INSTIL ONE (16:16)
[2020-01-05] MEDS ORDERED: FAMOTIDINE 20 MG in SYRINGE 3 ML IV SCH (16:37)
[2020-01-05] MEDS ORDERED: Nursing to Pharmacy Communication SCH (16:45)
[2020-01-05] MEDS ORDERED: MoRPHine SULFATE 2 MG/ML CARP IV STA (17:26)
[2020-01-05] MEDS ORDERED: HYDROmorphone INJ 1 MG/ML SYRINGE IV STA (18:06)
[2020-01-05] MEDS ORDERED: KETOROLAC TROMETHAMINE 15 MG/ML VIAL IV PRN (18:08)
--- NOTE | 2020-01-05 18:14 | Billing Data ---
Date of Service January 05, 2020 Coding Level of Care Code Critical Care 1st - mins
[2020-01-05] MEDS: TAMSULOSIN HCL 0.4 MG CAP PO SCH (19:15)
[2020-01-05] MEDS: MAGNESIUM OXIDE 400 MG TAB PO SCH (19:15)
--- NOTE | 2020-01-05 19:36 | Hospitalist Progress Note ---
Date of Service January 05, 2020 Assessment & Plan (1) Sepsis: Concern for this at [facility], possible urosepsis VSS now s/p zosyn, vanco Continue abx as per ICU COVID neg at [facility] Flu neg (2) Hydronephrosis: Likely secondary to obstruction from kidney stone Case was reported to have been d/w Dr. Hebert by Dr. Olsen at [facility] prior to transfer For OR today for stenting Continue with abx UA + for leuk est, neg nitrites Urine cx pending ESR 77 (3) Chronic respiratory failure with hypoxia: Pt has been on home O2 and steroids since for SOB Has not had pulm workup due to COVID Now with CHF, PNA Abx, diuretics ECHO with EF 55-60%, neg for structural issues COPD dx as well, no hx of home inhaler use Steroid taper (4) Diabetes: Insulin drip on admission, ICU glucose protocol A1c 10.9 (5) Pneumonia: Noted on CXR Abx as per ICU (6) DVT prophylaxis: As per ICU Admission and Anticipated Discharge Date Admission Date: January 04, 2020 Subjective Pt is awaiting OR during our discussion. She has ongoing flank pain. Has not eaten today in anticipation of OR. Pt denies fever, SOB, chest pain, abd pain, v/c/d, LE pain or swelling. Ongoing nausea issues. Review of Systems Review of Systems: Pertinent positives and negatives reviewed in HPI--all others negative Physical Exam Constitutional: WD/WN, vitals as above Eyes: normal visual sweeney by confrontation and + anicteric sclerae Neck: normal visual inspection and trachea midline Respiratory: normal respiratory effort, lungs clear to auscultation Cardiovascular: Rate/Rhythm: regular rate and regular rhythm Extremities: + edema (R>L LE edema) Gastrointestinal (Abdomen): Inspection/Auscultation: abdomen not distended Percussion/Palpation: abdomen soft; abdomen nontender Musculoskeletal: Head/Neck/Chest: normocephalic and head atraumatic Skin: no rashes, warm and dry Neurologic: awake; not confused Speech / Cognition: normal speech Psychiatric: A+Ox3, euthymic affect Results & Data Results & Data ([facility]) Vital Signs (Past 12 Hours) Vital Signs Temp Pulse Pulse Resp BP BP Pulse Ox 01/05/20 18:00 120 H 18 122/82 87 L 01/05/20 17:30 122 H 86 L 01/05/20 17:20 121 H 87 L 01/05/20 17:10 119 H 88 L 01/05/20 17:00 110 H 117/81 90 01/05/20 16:50 115 H 90 01/05/20 16:40 109 H 91 01/05/20 16:35 109 H 108 H 18 113/76 113/76 91 01/05/20 16:30 109 H 109/81 91 01/05/20 16:26 110 H 102/85 91 01/05/20 16:25 113 H 18 121/85 90 01/05/20 16:20 109 H 121/85 90 01/05/20 16:15 106 H 108 H 18 110/79 110/79 92 01/05/20 16:10 111 H 128/87 88 L 01/05/20 16:07 112 H 136/92 89 L 01/05/20 16:05 36.8 C 109 H 16 115/94 90 01/05/20 16:03 108 H 115/94 97 01/05/20 15:10 116 H 88 L 01/05/20 15:00 111 H 117/78 92 01/05/20 14:50 110 H 93 01/05/20 14:40 109 H 93 01/05/20 14:30 114 H 85 L 01/05/20 14:20 110 H 91 01/05/20 14:10 114 H 90 01/05/20 14:00 117 H 129/73 90 01/05/20 13:50 110 H 94 01/05/20 13:40 110 H 01/05/20 13:30 112 H 92 01/05/20 13:20 110 H 93 01/05/20 13:10 110 H 93 01/05/20 13:02 112 H 91 01/05/20 13:01 113 H 124/77 93 01/05/20 13:00 111 H 94 01/05/20 12:20 36.9 C 117 H 20 120/84 95 01/05/20 12:14 120 H 120/84 92 01/05/20 12:00 112 H 92 01/05/20 11:00 109 H 123/79 94 01/05/20 10:00 113 H 128/84 94 01/05/20 09:00 36.7 C 106 H 113/69 96 11/09/20 08:00 109 H 104/70 94 PG Care Time/CCT Total # of Minutes Spent Total Time Spent with Patient: Total time spent is greater than 50% in coordination of care (as documented) at patient's floor/unit and/or counseling patient: Coding Level of Care Code 41294 Subseq Hosp Care Lvl 3 Diagnoses Sepsis A41.9 Hydronephrosis N13.30 Chronic respiratory failure with hypoxia J96.11 Diabetes E11.9 Pneumonia J18.9 DVT prophylaxis Z29.9
[2020-01-05] MEDS: INSULIN GLARGINE SOLOSTAR 100 UNITS/ML 3 ML PEN SC SCH (20:42)
[2020-01-06] MEDS: MEROPENEM 500 MG in SYRINGE 0 ML IV SCH ×2 (01:08→06:27)
[2020-01-06] MEDS ORDERED: INSULIN ASPART 100 UNITS/ML 3 ML PEN SC ONE (02:00)
[2020-01-06] MEDS: HYDROmorphone INJ 0.5 MG/0.5 ML SYR IV PRN ×2 (02:12→08:28)
[2020-01-06 04:43] LABS: Basophils # (auto) 0.04 K/uL (0-0.2); Basophils % (auto) 0.3 %; Eosinophils # (auto) 0.26 K/uL (0-0.5); Eosinophils % (auto) 1.8 %; Hematocrit (blood only) 40.1 % (37-47); Immature Granulocytes # (auto) 0.15 K/uL (0.00-0.02); Immature Granulocytes % (auto) 1.1 %; Lymphocytes # (auto) 1.98 K/uL (1.2-3.4); Mean Corpuscular Hgb Conc 32.4 g/dL (32-36); Mean Corpuscular Volume 92.4 fL (80-100); Mean Platelet Volume 10.3 fL (7.4-10.4); Monocytes % (auto) 9.9 %; Neutrophils % (auto) 72.9 %; Platelet Count 384 K/uL (130-400); RDW Standard Deviation 51.1 fL (36.4-46.3); Red Blood Count 4.34 M/uL (4.2-5.4); White Blood Count 14.13 K/uL (4.8-10.8)
[2020-01-06 05:00] LABS: BUN Creatinine Ratio 28.4 (10-20); Calcium 8.8 mg/dl (8.5-10.1); Creatinine Clr Calc Pharmacy 106.9 ml/min; Est GFR (African American) 117.8; Est GFR (Non-African American) 101.6; Magnesium 2.2 mg/dl (1.8-2.4)
[2020-01-06 05:02] LABS: Phosphorus 2.6 mg/dl (2.5-4.9)
[2020-01-06] MEDS: ICU ELECTROLYTE REPLACEMENT PROTOCOL SCH (06:01)
--- NOTE | 2020-01-06 06:15 | Critical Care Progress Note ---
Date of Service January 06, 2020 Assessment & Plan (1) Chronic respiratory failure with hypoxia: Reason Critically Ill: 59 yo F PMHx significant for DM2, nephrolithiasis, COPD on 4LNC at baseline, current smoker with 30 pack year history who was admitted from [facility] for obstructive nephrolithiasis, pneumonia, and sepsis. Neuro - [facility] ICU: negative Sedation: none Analgesia: ibuprofen 600q8h PRN mild pain 1st choice, tylenol 650mg q4h prn mild pain/fever second choice, Percocet 1 tab prn moderate pain, 2 tabs prn severe pain. D/c'ed Dilaudid and Toradol. - No focal neurologic deficits. No neurologic concerns at this time. Cardiac - - No notable cardiac history. - On 4LNC at baseline due to COPD. - No increased oxygen demand in hospital, however imaging with findings suggestive of fluid overload. - Echo performed which showed LVEF 55-60%, no regional wall motion abnormalities, normal RV function, no significant valvular pathology. - With improvement in peripheral edema and lung exam with diuretics. Tachycardia: - Starting metoprolol 12.5mg BID for tachycardia. Respiratory - Chronic hypoxic respiratory failure: - Patient is currently an active smoker. - On 4LNC at baseline for COPD. - Continues to saturate well on baseline 4LNC. - On chronic prednisone therapy; weaning as below. - Continue Anoro/Ellipta, fluticasone inhalers daily. - Patient was not on inhalers in outpatient setting despite long-standing COPD, but has been on steroids for a significant amount of time. - Would benefit from Pulmonology referral for medication optimization on discharge, has not had PFTs in several years. - CT Chest with IV contrast ordered given suspicion at [facility] for primary malignancy. RUL Pneumonia: - On admission with CXR showing a right upper lung airspace opacity suggestive of pneumonia, as well as diffuse interstitial thickening (pulmonary edema vs. infection). - CT Chest reviewed by Dr. Quezada: - Increased interstitial markings and cystic bronchiectasis appreciated in bi lateral upper lobes more prominent on the right side. - Consolidative process versus scarring appreciated in the right upper lobe. - Diffuse groundglass opacity bilaterally. Right-sided pleural effusion. Notable mediastinal lymphadenopathy. - Nasal MRSA negative. Influenza A and B negative. - Transition IV antibiotics to oral Levaquin for total 10 days of therapy. Will cover broad spectrum and Pseudomonas coverage given COPD history. GI - - DM2 diet. - Pantoprazole 40mg daily for ulcer prophylaxis, especially in the setting of chronic steroid therapy. - CTAP with IV contrast ordered given abdominal pain following stent placement. RENAL/LYTES - Hypokalemia/Hypomagnesemia: - K 4.0 today. - Mg 2.2. Continue Mag Oxide 400mg daily. Complicated UTI, hydronephrosis: - On imaging at [facility] with obstructing right UPJ stone with moderate hydronephrosis. - [facility] cultures: BCx no growth after 48 hours; UCx >100,000 colonies E. coli, pansensitive. - Levaquin as above for good coverage of pansensitive UTI plus complex organisms and Pseudomonas coverage given COPD history. - R obstructive nephrolithiasis: - Transferred from [facility] for Urology intervention. - Found on imaging at outside site to have large obstructing 2.7 cm right ureteropelvic junction stone with moderate amount of hydronephrosis. - Urology consulted and appreciate recommendations. - s/p cystoscopy, right retrograde pyelogram and right stent placement 01/05/2020. - Pain control as above. - Added daily Flomax and Pyridium scheduled for 3 days for bladder spasm. ENDO - DM2: - At home on glimepiride 4mg daily, metformin 1000mg BID. - A1c this admission 10.9; this is in the setting of having been on prednisone daily for a significant amount of time for COPD. - Holding home DM2 medications. Lantus and SSI. - DM2 diet; clinical unit educator consult placed. - Patient will need medication adjustment for tighter BSG control prior to discharge. Secondary adrenal insufficiency: - Patient has been on long-term steroid therapy for COPD, likely resulting in secondary adrenal insufficiency. - On admission was on prednisone 20mg daily. Will start taper while inpatient as follows: - Have decreased prednisone to 15mg daily for one week. One week increments following of 12mg daily, 10mg daily, then 5mg daily ongoing following that. - Suspect patient will need chronic steroid therapy indefinitely at this point due to long-standing use. HEME - - Stable H&H. ID - Sepsis 2/2 UTI with obstructive nephrolithiasis: - Met criteria for sepsis on arrival to hospital due to tachycardia and elevated WBC count. - Urologic intervention as above for obstructive renal calculus. - Treatment with meropenem for complicated UTI. UCx currently growing >100,000 colonies E. coli, sensitivities to follow. - Continue to monitor fever curve. Patient afebrile since arrival. - Patient is hemodynamically stable and well-appearing, though having breakthrough pain. - Levaquin for pneumonia and UTI coverage. INTEGUMENTARY - - No present concerns. LINES/IV ACCESS - - PIVs intact. DVT PROPHYLAXIS - - SCDs, Heparin. Code Status: FULL CODE Thank you for the consult. This patient is stable for downgrade to Telemetry level of care today. Please see Dr. Olsen's documentation for any changes to care plan. (2) Obstruction of right ureteropelvic junction (UPJ) due to stone: (3) Diabetes: (4) Hydronephrosis: (5) Sepsis: (6) Smoker: (7) Obesity: Admission and Anticipated Discharge Date Admission Date: January 04, 2020 Supervising Physician Co-Signing Physician Notes Dr. Diaz was resident physician during care of patient. I separately evaluated patient for rodriguez portions of the history and the exam. I was present during the critical portion of medical decision making, and I discussed the case with the resident. I generally agree with the findings and plan. De-escalating antibiotics to 10 days of Levaquin for complicated urinary tract infection which will also provide relatively broad-spectrum coverage for any possible respiratory pathogens given findings on CT scan. Holding diuresis today as we will obtain a CT scan with contrast of the chest abdomen pelvis given the concern for possible malignancies. We will add Flomax and Pyridium for pain which I believe is secondary to ureteral irritation. Additional 40 M EQ's of K-Dur p.o. Initiating 12-.5 mg metoprolol twice daily for tachycardia. Empiric Pyridium for 3 days given probable bladder and ureteral spasms Oral analgesics and all oral medications. Stable for downgrade out of ICU I reviewed the radiology report of the CT chest. The areas are most likely emphysematous change secondary to longstanding tobacco abuse and I do not believe the areas of cavitation would represent tuberculosis, certainly the bronchiectasis might represent Mycobacterium avium. She also has no other significant clinical history to support tuberculosis exposure, for completeness of the pulmonary evaluation I have added the cure amount of urine gold however I am not proceeding with negative pressure isolation given the strong clinical and historical evidence suggesting emphysematous disease. Additionally we have significant negative pressure isolation limitations due to COVID-19 pandemic conditions. Subjective Patient had intermittent pain overnight but was well controlled with her Dilaudid. States that it feels like "her back is out" on the right side. She also gets intermittent pains in her R inguinal area. No nausea or vomiting, no abdominal pain but endorses bloating. No fevers. Has been tachycardic since admission. No prior records to indicate HR baseline. Denies chest pain and shortness of breath as compared to baseline. Review of Systems Review of Systems: All systems reviewed & are unremarkable except as noted in HPI & below Constitutional: no fever, no chills and no malaise Respiratory: no cough and no dyspnea Cardiovascular: no chest pain, no palpitations and no edema Gastrointestinal: no abdominal pain, no constipation and no diarrhea/loose stools Musculoskeletal: + back pain (breakthrough pain between dilaudid doses) Physical Exam Physical Exam: VITAL SIGNS - Vital signs and nursing notes were reviewed. GENERAL - 59 yo F, well developed, well nourished, in no acute distress SKIN - Without rashes. EYES - PERRL. Sclera anicteric. Palpebral conjunctiva pink and moist with no injection noted. EARS - No deformities of external structures noted on gross examination bilaterally. NOSE - Midline and without cyanosis. No epistaxis or purulent drainage noted. MOUTH/OROPHARYNX - No perioral cyanosis. NECK - Supple to palpation. No nuchal rigidity. LUNGS - Lungs with mild basilar crackles, no wheezes. On 4LNC saturating well. CARDIAC - Tachycardia, regular rhythm. No murmur, rubs, or gallops appreciated. ABDOMEN - Soft, tender to palpation in RLQ, nondistended, normal bowel sounds. EXTREMITIES - No clubbing or peripheral cyanosis. Trace peripheral edema L>R. Radial and dorsalis pedis pulses palpated bilaterally. NEUROLOGIC - No focal neurological deficits noted on exam. Results & Data Results & Data ([facility]) Vital Signs (Past 12 Hours) Vital Signs Temp Pulse Resp BP Pulse Ox 01/06/20 04:18 36.8 C 01/06/20 04:00 109 H 20 112/72 91 01/06/20 03:00 110 H 17 109/71 91 01/06/20 02:01 112 H 22 113/68 92 01/06/20 01:01 113 H 19 114/73 93 01/06/20 00:00 37.0 C 110 H 21 114/71 90 01/05/20 23:00 117 H 19 125/82 91 01/05/20 22:01 116 H 18 129/67 92 01/05/20 21:01 114 H 19 122/77 94 01/05/20 20:00 37.0 C 111 H 18 113/74 97 01/05/20 19:01 117 H 20 113/70 87 L Resident Activity Tracking Resident Involvement: Resident Care Provided Care Provided: Adult Hospital Medicine
[2020-01-06] MEDS: UMECLIDINIUM/VILANTEROL 62.5/25MCG 7 PUFFS/INHALER INH SCH (08:14)
[2020-01-06] MEDS: FLUTICASONE FUROATE 100MCG 14 PUFFS/INHALER INH SCH (08:14)
[2020-01-06] MEDS: INSULIN GLARGINE SOLOSTAR 100 UNITS/ML 3 ML PEN SC SCH ×2 (08:14→21:29)
[2020-01-06] MEDS: PANTOprazole 40 MG TAB PO SCH (08:25)
[2020-01-06] MEDS: predniSONE 5 MG TAB PO SCH (08:25)
[2020-01-06] MEDS: INSULIN ASPART 100 UNITS/ML 3 ML PEN SC SCH ×4 (08:26→21:33)
--- NOTE | 2020-01-06 08:48 | Urology Progress Note ---
Date of Service January 06, 2020 Assessment & Plan (1) Obstruction of right ureteropelvic junction (UPJ) due to stone: (2) Sepsis: 59 year-old female patient, with multiple comorbidities, admitted with UTI, sepsis, and lower back pain secondary to large obstructing 2.7 cm right UPJ stone with moderate amount of hydronephrosis. -POD #1 cystoscopy, right retrograde pyelogram and right stent placement. -Clinically progressing as expected with improvement in pain. -Remains afebrile. -Labs reviewed, white count remains elevated, stable creatinine. -Per chart review, MAGDIEL Mehdi UCx >100,000 colonies E. coli, pansensitive, antibiotics per primary team. -Would recommend at least 10-14 days total antibiotic therapy based on sensitivities. -Will arrange outpatient follow-up with urology service to discuss stone management after infection resolved. -Expected clinical course reviewed with patient, all questions answered. -Will continue to follow peripherally. Thank you for allowing us to participate in the acute care of Ms. Barrow. Please contact us with additional questions, concerns or changes in patient status. Admission and Anticipated Discharge Date Admission Date: January 04, 2020 Subjective POD #1 cystoscopy, right retrograde pyelogram and right stent placement. Patient feeling better today overall, sitting up in chair this morning. No reported issues overnight. Reports pain has improved. Does note some intermittent right lower abdomen discomfort. No reported flank pain. Tolerating akins catheter. Denies nausea or vomiting. Denies fevers or chills. Chart review: Afebrile Wbc 14.13 Hgb 13.0 Creatinine 0.58 Urine culture in chart showing three types of organisms, moderate amount. Per chart review, MAGDIEL Mehdi UCx >100,000 colonies E. coli, pansensitive. Currently on IV Meropenem. Preliminary blood culture no growth after 24 hours. Denies additional urologic concerns today. Review of Systems Constitutional: as per Subjective / HPI; no fever and no chills Gastrointestinal: as per Subjective / HPI; no nausea and no vomiting Genitourinary: as per Subjective / HPI Musculoskeletal: as per Subjective / HPI Physical Exam Constitutional: well developed and well nourished; no acute distress and not ill appearing Respiratory: normal respiratory effort and able to speak in complete sentences; no respiratory distress and no audible wheezes On 4L oxygen via nasal cannula. Cardiovascular: Extremities: no edema Gastrointestinal (Abdomen): Inspection/Auscultation: abdomen normal to inspection; abdomen not distended Percussion/Palpation: abdomen soft; abdomen nontender and no guarding Psychiatric: Orientation: alert, oriented x 3 and cooperative Affect: euthymic affect Genitourinary: no CVA tenderness Akins catheter intact draining concentrated yellow urine. Results & Data ([facility]) Vital Signs (Past 12 Hours) Vital Signs Temp Pulse Resp BP Pulse Ox 01/06/20 04:18 36.8 C 01/06/20 04:00 109 H 20 112/72 91 01/06/20 03:00 110 H 17 109/71 91 01/06/20 02:01 112 H 22 113/68 92 01/06/20 01:01 113 H 19 114/73 93 01/06/20 00:00 37.0 C 110 H 21 114/71 90 01/05/20 23:00 117 H 19 125/82 91 01/05/20 22:01 116 H 18 129/67 92 01/05/20 21:01 114 H 19 122/77 94 PG Care Time/CCT Total # of Minutes Spent Total Time Spent with Patient: Total time spent is greater than 50% in coordination of care (as documented) at patient's floor/unit and/or counseling patient: Coding Level of Care Code 27168 Subseq Hosp Care Lvl 2 Diagnoses Obstruction of right ureteropelvic junction (UPJ) due to stone N20.1 Sepsis A41.9
[2020-01-06] MEDS ORDERED: POTASSIUM CHLORIDE CRTAB 20 MEQ TABCR PO ONE (10:00)
[2020-01-06] MEDS ORDERED: levoFLOXacin 750 MG TAB PO SCH (10:00)
[2020-01-06] MEDS ORDERED: IOVERSOL 100ml IV ONE (10:23)
[2020-01-06] MEDS ORDERED: AZITHROMYCIN 250 MG TAB PO ONE (10:30)
[2020-01-06] MEDS ORDERED: cefTRIAXone SODIUM 2,000 MG in DEXTROSE 5% 50 ML IV ONE (10:30)
[2020-01-06] MEDS ORDERED: ACETAMINOPHEN 325 MG TAB PO PRN (10:33)
[2020-01-06] MEDS ORDERED: IBUPROFEN 600 MG TAB PO PRN (10:33)
--- NOTE | 2020-01-06 10:49 | CT Scan Report ---
CT OF THE CHEST WITH IV CONTRAST CLINICAL HISTORY: Pain, SOB, r/o malignancy COMPARISON STUDY: Chest radiograph January 04, 2020. CT of the chest, abdomen and pelvis January 04, 2020. TECHNIQUE: Following IV administration of 94 mL of Optiray-320, helical axial images of the chest we re obtained. Sagittal and coronal reconstructions were viewed as well as maximal intensity projectio ns on an independent 3-D workstation. Automated exposure control was utilized for the study. A dose lowering technique was utilized adhering to the principles of ALARA. CT DOSE: 1980.47 mGy.cm FINDINGS: The heart is mildly enlarged. There is moderate coronary artery calcification. No pericard ial effusion is noted. Note is made of multiple enlarged thoracic lymph nodes as well as lower cervic al lymph nodes. An index left level 4 cervical lymph node on image 25 of 276 measures 2.1 x 1.4 cm. I ndex prevascular node measures 1.5 x 1.1 cm. Index left retropectoral lymph node on image 54 measures 1.6 cm. There are also numerous mildly enlarged mediastinal lymph nodes. Small right and trace left pleural effusions have increased since CT of January 04, 2020. Multifocal irregular airspace opacitie s within the right upper lobe are noted. The larger opacity measures 4.8 cm. These opacities contain cystic foci which may be due to underlying lung disease. There is emphysema. Additional groundglass o pacities and interlobular septal thickening throughout the lungs is noted. No central obstructing les ion is noted. No suspicious lesions within the bony thorax are noted. The abdomen and pelvis will be reported separately. No central pulmonary embolus is present. IMPRESSION: 1. Multifocal irregular right upper lobe airspace opacities, similar to prior chest CT. These contain a few cystic foci which probably reflect underlying emphysematous lung although cavitation could loraine ear similar. Pneumonia is favored. A neoplastic etiology is within the differential but considered le ss likely. A follow-up chest CT in one month is recommended. Additional groundglass opacities through out the lungs may reflect pulmonary edema or an infectious process. Interlobular septal thickening is indicative of interstitial pulmonary edema. 2. Increase in small right and trace left pleural effusions since CT of January 04, 2020. 3. Mild to moderate mediastinal and lower cervical lymphadenopathy. This lymphadenopathy is nonspecif ic and should be assessed on follow-up chest CT. 4. Mild cardiomegaly. Moderate coronary artery calcification. Dilated right heart chambers could refl ect elevated right heart pressure/pulmonary arterial hypertension. ACT 112: Negative or not required by law. Electronically signed by: Vinod Lyman M.D. 01/06/2020 10:48 AM
[2020-01-06] MEDS: oxyCODONE/ACETAMINOPHEN 5mg/325mg TAB PO PRN ×3 (11:06→21:28)
--- NOTE | 2020-01-06 11:06 | Billing Data ---
Date of Service January 06, 2020 Coding Level of Care Code 23872 Subseq Hosp Care Lvl 3
[2020-01-06] MEDS: HEPARIN SOD 5,000 UNIT/0.5 ML VIAL SQ SCH ×2 (11:07→21:28)
[2020-01-06] MEDS: METOPROLOL TARTRATE 25 MG TAB PO SCH ×2 (11:07→20:34)
[2020-01-06] MEDS: PHENAZOPYRIDINE HCL 200 MG TAB PO SCH ×2 (11:08→20:35)
--- NOTE | 2020-01-06 11:14 | CT Scan Report ---
CT OF THE ABDOMEN AND PELVIS WITH CONTRAST CLINICAL HISTORY: Severe abdominal pain r/o malignancy. COMPARISON STUDY: CT of the abdomen and pelvis January 04, 2020. TECHNIQUE: Following IV administration of 94 mL of Optiray-320, axial images of the abdomen and pelvi s were obtained from the lung bases to the proximal femurs. Images were reviewed in the axial, sagitt al, and coronal planes. IV contrast was administered without complication. Automated exposure contro l was utilized for the study. A dose lowering technique was utilized adhering to the principles of A TIFFANI. FINDINGS: Please note that the chest CT will be reported separately. Small right and trace left pleur al effusions are noted. Interlobular septal thickening indicates pulmonary edema. Additional airspace opacities are noted. These findings are better depicted on the chest CT. No pneumatosis, free air or portal venous gas is present. There is probable hepatic steatosis. There are no hepatic lesions. The re is no biliary or pancreatic ductal dilatation. No peripancreatic or pericholecystic infiltration i s noted. The spleen and adrenal glands are unremarkable. There is no evidence for a bowel obstruction . The appendix is normal. No abdominal or pelvic lymphadenopathy is present. Note is made of an acute fracture through the inferior endplate of L2 with mild vertebral body height loss. There is no retro pulsion. No acute pelvic or hip fractures present. Fat-containing ventral and umbilical hernias are p resent. A akins balloon within the bladder is noted. The bladder is collapsed. A right ureteral stent is in p lace. Moderate right hydronephrosis has improved since CT of January 05, 2020. Upper pole calyceal di latation is moderately improved wall lower pole calyceal dilatation has minimally improved. A large r ight renal pelvis calculus measuring 2.3 cm is again noted. There are numerous additional bilateral r enal calculi. There are no ureteral calculi or fragments. Note is made of a 1.8 cm hypodense focus wi thin the midpole of the right kidney. There is hypoenhancement of the adjacent renal parenchyma. IMPRESSION: 1. Right ureteral stent in place. Moderate right hydronephrosis, improved since CT of January 04 0. Redemonstration of a large right renal pelvis calculus, measuring 2.3 cm. Extensive bilateral neph rolithiasis. 2. 1.8 cm hypodense focus within the midpole of the right kidney. Although this may reflect a cyst, a small renal abscess or less likely renal mass cannot be completely excluded. A renal protocol CT in one month is recommended to ensure resolution. 3. Acute mild compression fracture involving the inferior endplate of L2. 4. No bowel obstruction. No bowel wall thickening. ACT 112: Negative or not required by law. Electronically signed by: Vinod Lyman M.D. 01/06/2020 11:13 AM
[2020-01-06] MEDS: levoFLOXacin 750 MG TAB PO SCH (11:17)
[2020-01-06] MEDS ORDERED: INSULIN GLARGINE SOLOSTAR 100 UNITS/ML 3 ML PEN SC STA (12:06)
--- NOTE | 2020-01-06 15:06 | Pharmacy Report ---
Pharmacy Glycemic Short Note 2 - Date of Service January 06, 2020 - Glycemic Short BSG Results (Last 24 hours): 01/05/20 01/05/20 01/06/20 16:46 20:39 02:15 Glucose POC Glucose 199 H 194 H 142 H 01/06/20 01/06/20 01/06/20 04:09 06:58 11:15 Glucose 168 H POC Glucose 183 H 300 H OUTPATIENT ANTIDIABETIC REGIMEN: * metformin, glimepiride ASSESSMENT: 01/05 * Patient fasting was adequate this morning (after 20 units basal, 5 units bolus insulin yesterday), however lunchtime BSG was significantly elevated. This is likely due to the fact patient was started on a diet and prednisone 15mg this morning. Lantus scale was empirically increased this morning and additional dose was administered at lunchtime. The novolog scale was also tightened to start this evening. Would consider a small IV bolus if BSG> 250mg/dL this evening. * Tomorrow will plan on administering NPH in addition to lantus to better cover the effects of the prednisone. 01/04 * 59 year-old female patient, with multiple comorbidities, admitted with suspected UTI, sepsis, and lower back pain secondary to large obstructing stone/hydronephrosis. * Type 2 diabetic managed only on oral agents at home. A1c on admission elevated at 10.9% * Initially started on insulin drip yesterday, ct'ed after about ~3-4 hours (running at 3.5 units/hr) * BSGs overnight on lower end of range 90-100s. BSG this AM 108 mg/dL - plan to hold basal * Lunch BSG trending up to 221 mg/dL, however patient now started on prednisone which likely is contributing to BSG value. Patient NPO for OR today. Anticipate BSGs to continue to trend up as now behind with steroids started. Plan to give basal 10 units x 1 now before OR and add scale for basal at HS PLAN FOR INPATIENT GLYCEMIC CONTROL: * Hold outpatient oral diabetes medications * Basal insulin * Lantus 15 units this morning with an additional 10 units administered at lunchtime * then Lantus 10-15-20 units SQ BID based on BSG-See MAR for details * Bolus insulin * NovoLog per scale ACHS or Q6hrs while NPO * Goal Range: Low 120 mg/dL - High 150 mg/dL * Correction Factor: 15 mg/dL/unit * Nutritional / Prandial insulin per carb ratio of 1 unit per 5 grams CHO consumed PLAN FOR DISCHARGE: * tbd
[2020-01-06] MEDS: TAMSULOSIN HCL 0.4 MG CAP PO SCH (20:34)
[2020-01-06] MEDS: MAGNESIUM OXIDE 400 MG TAB PO SCH (20:34)
--- NOTE | 2020-01-06 22:39 | Hospitalist Progress Note ---
Date of Service January 06, 2020 Assessment & Plan (1) Sepsis: Concern for this at [facility], possible urosepsis/ bronchiectasis VSS now s/p zosyn, vanco Continue abx, however this will be switched to levofloxacin to cover UTI and organisms from bronchiectasis. COVID neg at [facility] Flu neg (2) Hydronephrosis: Likely secondary to obstruction from kidney stone Case was reported to have been d/w Dr. Hebert by Dr. Olsen at [facility] prior to transfer S/P ureteral stenting. Continue with abx UA + for leuk est, neg nitrites Urine cxpansensitve e. coli (3) Chronic respiratory failure with hypoxia: Pt has been on home O2 and steroids since April/May for SOB Has not had pulm workup due to COVID Now with CHF, PNA from bronchiectasis Abx, diuretics ECHO with EF 55-60%, neg for structural issues COPD dx as well, no hx of home inhaler use Steroid taper (4) Diabetes: Insulin drip on admission, ICU glucose protocol A1c 10.9 (5) Pneumonia: Noted on CXR Abx as above (6) DVT prophylaxis: heparin Admission and Anticipated Discharge Date Admission Date: January 04, 2020 Subjective Patient reports feeling better. She has less pain in her back today. And she reports breathing better. Review of Systems Review of Systems: All systems reviewed & are unremarkable except as noted in HPI & below Physical Exam Physical Exam: Constitutional: WD/WN, vitals as above Eyes: normal visual sweeney by confrontation and + anicteric sclerae Neck: normal visual inspection and trachea midline Respiratory: normal respiratory effort, lungs clear to auscultation Cardiovascular: Rate/Rhythm: regular rate and regular rhythm Extremities: + edema (R>L LE edema) Gastrointestinal (Abdomen): Inspection/Auscultation: abdomen not distended Percussion/Palpation: abdomen soft; abdomen nontender Musculoskeletal: Head/Neck/Chest: normocephalic and head atraumatic Skin: no rashes, warm and dry Neurologic: awake; not confused Speech / Cognition: normal speech Psychiatric: A+Ox3, euthymic affect Results & Data Results & Data ([facility]) Vital Signs (Past 12 Hours) Vital Signs Temp Pulse Pulse Resp BP BP Pulse Ox 01/06/20 19:17 36.4 C L 108 H 18 105/73 90 01/06/20 17:37 37.1 C 115 H 18 130/89 95 01/06/20 16:00 36.7 C 100 H 20 112/72 92 01/06/20 14:00 96 H 17 91/58 L 94 01/06/20 13:00 106 H 26 H 102/66 88 L 01/06/20 12:00 123 H 19 98/65 L 76 L 01/06/20 11:17 115 H 23 126/74 98 PG Care Time/CCT Total # of Minutes Spent Total Time Spent with Patient: Total time spent is greater than 50% in coordination of care (as documented) at patient's floor/unit and/or counseling patient: Coding Level of Care Code 41592 Subseq Hosp Care Lvl 2 Diagnoses Sepsis A41.9 Hydronephrosis N13.30 Chronic respiratory failure with hypoxia J96.11 Diabetes E11.9 Pneumonia J18.9 DVT prophylaxis Z29.9 Time Spent (min) 25
[2020-01-07] MEDS ORDERED: INSULIN ASPART 100 UNITS/ML 3 ML PEN SC SCH (02:00)
[2020-01-07] MEDS: oxyCODONE/ACETAMINOPHEN 5mg/325mg TAB PO PRN ×3 (02:11→17:01)
[2020-01-07] MEDS ORDERED: INSULIN HUMAN NPH SC SCH (08:00)
[2020-01-07] MEDS: INSULIN ASPART 100 UNITS/ML 3 ML PEN SC SCH ×4 (08:03→20:35)
[2020-01-07] MEDS: INSULIN GLARGINE SOLOSTAR 100 UNITS/ML 3 ML PEN SC SCH ×2 (08:04→20:35)
[2020-01-07] MEDS: PHENAZOPYRIDINE HCL 200 MG TAB PO SCH ×3 (08:05→20:34)
[2020-01-07] MEDS: predniSONE 5 MG TAB PO SCH (08:05)
[2020-01-07] MEDS: HEPARIN SOD 5,000 UNIT/0.5 ML VIAL SQ SCH ×2 (08:06→20:34)
[2020-01-07] MEDS: PANTOprazole 40 MG TAB PO SCH (08:06)
[2020-01-07] MEDS: METOPROLOL TARTRATE 25 MG TAB PO SCH ×2 (08:06→20:33)
[2020-01-07] MEDS: FLUTICASONE FUROATE 100MCG 14 PUFFS/INHALER INH SCH (08:07)
[2020-01-07] MEDS: UMECLIDINIUM/VILANTEROL 62.5/25MCG 7 PUFFS/INHALER INH SCH (08:07)
[2020-01-07] MEDS ORDERED: AZITHROMYCIN 250 MG TAB PO SCH (09:00)
[2020-01-07] MEDS ORDERED: CEFDINIR 300 MG CAP PO SCH (09:00)
[2020-01-07] MEDS: levoFLOXacin 750 MG TAB PO SCH (12:05)
--- NOTE | 2020-01-07 14:30 | Pharmacy Report ---
Glycemic Control Progress Note - Date of Service January 07, 2020 - Scope Glycemic Pharmacist consulted for glycemic control to write orders per [facility] inpatient glycemic control protocol. - Objective Accuchecks BSG(last 24 hours):: 01/06/20 01/06/20 01/07/20 16:07 20:58 02:15 POC Glucose 204 H 134 H 154 H 01/07/20 01/07/20 07:22 11:19 POC Glucose 144 H 188 H HbA1c:: Hemoglobin A1c 10.9 % (4.5-5.6) H 01/05/20 04:39 - Recent Pertinent Medications The patient is currently receiving: * Basal insulin: Lantus [] units every [] hours * Correctional Insulin: Novolog Correction per scale ACHS Goal Range: Low [] mg/dL - High [] mg/dL Correction Factor: [] mg/dL/unit * Prandial insulin: Per carb ratio of 1 unit per [] grams CHO consumed * Oral Agents: - Outpatient Anti-Diabetic Meds metformin 1 gm PO BID Amaryl 4 mg daily - Assessment & Plan ASSESSMENT: * See progress note from 01/15/20 for more background info, in short: * Pt receiving SQ basal bolus insulin regimen for hyperglycemia secondary to ba seline DM (outpatient regimen on hold),stress/infection (patient on Levaquin), and prednisone 15 mg daily * Patient is currently receiving an average of 73 units of insulin per day * 40 units of basal insulin * 33 units of prandial/correctional insulin * BSGs ranging 134 - 300 mg/dl over the past 24hrs * Changes needed to insulin regimen: * AM Fasting BSG = 144 mg/dl. This is in goal range for patient based on inpatient targets and co-morbidities. Therefore Basal insulin will be continued at Lantus 20 units BID. * Post-prandial BSGs were elevated yesterday. Novolog tightened to weight- based stress of 3 yesterday. Agree. For NPH, will start 0.15 units/kg or 15 units. * Total daily dose = ~80 units. Adjusted insulin PLAN FOR INPATIENT GLYCEMIC CONTROL: * Continuing Lantus 20 units SQ BID + STARTING NPH 15 units SQ daily * Continuing correction factor of 15 mg/dl/unit * Continuing carb ratio of 1 unit per 5 grams CHO consumed * Continuing goal range of Low 110 mg/dL - High 140 mg/dL RECOMMENDATIONS FOR DISCHARGE: * Recommend for Prednisone 11-15 mg/day give NPH 15 units daily * Recommend for Prednisone 10 mg and below give NPH 10 units daily * please note these values may change Thank you.
[2020-01-07] MEDS: TAMSULOSIN HCL 0.4 MG CAP PO SCH (20:31)
[2020-01-07] MEDS: MAGNESIUM OXIDE 400 MG TAB PO SCH (20:32)
[2020-01-07] MEDS: ONDANSETRON INJ 2 MG/ML 2 ML VIAL IV PRN (22:20)
--- NOTE | 2020-01-07 22:39 | Hospitalist Progress Note ---
Date of Service January 07, 2020 Assessment & Plan (1) Sepsis: Concern for this at [facility], possible urosepsis/ bronchiectasis VSS now s/p zosyn, vanco Continue abx, now levofloxacin to cover UTI and organisms from bronchiectasis. COVID neg at [facility] Flu neg Nasal cannula is at 5 liters, (home dose is 4 liters) (2) Hydronephrosis: Likely secondary to obstruction from kidney stone Case was reported to have been d/w Dr. Hebert by Dr. Olsen at [facility] prior to transfer S/P ureteral stenting. Continue with abx UA + for leuk est, neg nitrites Urine cxpansensitve e. coli (3) Chronic respiratory failure with hypoxia: Pt has been on home O2 and steroids since April/May for SOB Has not had pulm workup due to COVID Now with CHF, PNA from bronchiectasis Abx, diuretics ECHO with EF 55-60%, neg for structural issues COPD dx as well, no hx of home inhaler use Steroid taper (4) Diabetes: Insulin drip on admission, ICU glucose protocol A1c 10.9 (5) Pneumonia: Noted on CXR Abx as above (6) DVT prophylaxis: heparin (7) Closed compression fracture of L2 vertebra: Patient has a closed compression fracture of L2. will continue to monitor her pain level. May consider calcitonin as her pain has not been controlled. Admission and Anticipated Discharge Date Admission Date: January 04, 2020 Subjective 59 yo female reports feeling about the same. Still having pain in her lumbar spine. Review of Systems Review of Systems: All systems reviewed & are unremarkable except as noted in HPI & below Physical Exam Physical Exam: Constitutional: WD/WN, vitals as above Eyes: normal visual sweeney by confrontation and + anicteric sclerae Neck: normal visual inspection and trachea midline Respiratory: normal respiratory effort, lungs clear to auscultation Cardiovascular: Rate/Rhythm: regular rate and regular rhythm Extremities: + edema (R>L LE edema) Gastrointestinal (Abdomen): Inspection/Auscultation: abdomen not distended Percussion/Palpation: abdomen soft; abdomen nontender Musculoskeletal: Head/Neck/Chest: normocephalic and head atraumatic Skin: no rashes, warm and dry Neurologic: awake; not confused Speech / Cognition: normal speech Psychiatric: A+Ox3, euthymic affect Results & Data Results & Data ([place]) Vital Signs (Past 12 Hours) Vital Signs Temp Pulse Pulse Resp BP Pulse Ox 01/07/20 19:48 36.7 C 105 H 20 101/67 93 01/07/20 16:00 115 H 01/07/20 15:13 36.8 C 114 H 23 103/73 95 01/07/20 10:55 37.0 C 102 H 19 110/76 90 PG Care Time/CCT Total # of Minutes Spent Total Time Spent with Patient: Total time spent is greater than 50% in coordination of care (as documented) at patient's floor/unit and/or counseling patient: Coding Level of Care Code 19015 Subseq Hosp Care Lvl 3 Diagnoses Sepsis A41.9 Hydronephrosis N13.30 Chronic respiratory failure with hypoxia J96.11 Diabetes E11.9 Pneumonia J18.9 DVT prophylaxis Z29.9 Closed compression fracture of L2 vertebra S32.020A
[2020-01-08] MEDS: UMECLIDINIUM/VILANTEROL 62.5/25MCG 7 PUFFS/INHALER INH SCH (08:11)
[2020-01-08] MEDS: FLUTICASONE FUROATE 100MCG 14 PUFFS/INHALER INH SCH (08:11)
[2020-01-08] MEDS: PANTOprazole 40 MG TAB PO SCH (08:13)
[2020-01-08] MEDS: METOPROLOL TARTRATE 25 MG TAB PO SCH ×2 (08:14→20:18)
[2020-01-08] MEDS: predniSONE 5 MG TAB PO SCH (08:14)
[2020-01-08] MEDS: PHENAZOPYRIDINE HCL 200 MG TAB PO SCH ×3 (08:14→20:17)
[2020-01-08] MEDS: HEPARIN SOD 5,000 UNIT/0.5 ML VIAL SQ SCH ×2 (08:54→20:20)
[2020-01-08] MEDS: INSULIN ASPART 100 UNITS/ML 3 ML PEN SC SCH ×4 (08:54→20:23)
[2020-01-08] MEDS: INSULIN GLARGINE SOLOSTAR 100 UNITS/ML 3 ML PEN SC SCH ×2 (08:54→20:23)
[2020-01-08] MEDS: INSULIN HUMAN NPH SC SCH (08:54)
[2020-01-08 08:58] LABS: Basophils # (auto) 0.05 K/uL (0-0.2); Basophils % (auto) 0.4 %; Eosinophils # (auto) 0.26 K/uL (0-0.5); Eosinophils % (auto) 2.1 %; Hematocrit (blood only) 37.5 % (37-47); Hemoglobin 11.9 g/dL (12.0-16.0); Immature Granulocytes # (auto) 0.34 K/uL (0.00-0.02); Immature Granulocytes % (auto) 2.7 %; Lymphocytes # (auto) 2.19 K/uL (1.2-3.4); Lymphocytes % (auto) 17.5 %; Mean Corpuscular Hemoglobin 29.6 pg (25-34); Mean Corpuscular Hgb Conc 31.7 g/dL (32-36); Mean Corpuscular Volume 93.3 fL (80-100); Mean Platelet Volume 10.4 fL (7.4-10.4); Monocytes # (auto) 1.32 K/uL (0.11-0.59); Monocytes % (auto) 10.6 %; Neutrophils # (auto) 8.35 K/uL (1.4-6.5); Neutrophils % (auto) 66.7 %; Platelet Count 443 K/uL (130-400); RDW Coefficient of Variation 14.9 % (11.5-14.5); RDW Standard Deviation 50.7 fL (36.4-46.3); Red Blood Count 4.02 M/uL (4.2-5.4); White Blood Count 12.51 K/uL (4.8-10.8)
[2020-01-08 09:25] LABS: BUN Creatinine Ratio 27.6 (10-20); Calcium 9.3 mg/dl (8.5-10.1); Creatinine Clr Calc Pharmacy 111.3 ml/min; Est GFR (African American) 119.1; Est GFR (Non-African American) 102.8; Phosphorus 3.1 mg/dl (2.5-4.9)
[2020-01-08] MEDS: oxyCODONE/ACETAMINOPHEN 5mg/325mg TAB PO PRN ×2 (09:55→21:59)
[2020-01-08] MEDS: levoFLOXacin 750 MG TAB PO SCH (12:03)
[2020-01-08] MEDS: CALCITONIN SALMON NA 200 IU/AC 3.7 ML BTL SCH (12:25)
[2020-01-08] MEDS: ACETAMINOPHEN 325 MG TAB PO SCH ×2 (12:26→16:52)
[2020-01-08] MEDS: TAMSULOSIN HCL 0.4 MG CAP PO SCH (20:17)
[2020-01-08] MEDS: MAGNESIUM OXIDE 400 MG TAB PO SCH (20:22)
--- NOTE | 2020-01-08 23:06 | Hospitalist Progress Note ---
Date of Service January 08, 2020 Assessment & Plan (1) Sepsis: Concern for this at [facility], possible urosepsis/ bronchiectasis VSS now s/p zosyn, vanco Continue abx, now levofloxacin to cover UTI and organisms from bronchiectasis. COVID neg at [facility] Flu neg Nasal cannula is at 4 liters, (home dose is 4 liters) will keep patient as pain is not controlled (2) Hydronephrosis: Likely secondary to obstruction from kidney stone Case was reported to have been d/w Dr. Hebert by Dr. Olsen at [facility] prior to transfer S/P ureteral stenting. Continue with abx UA + for leuk est, neg nitrites Urine cxpansensitve e. coli Plan is for patient to followup with urollogy after 10-14 days of antibiotics (3) Chronic respiratory failure with hypoxia: Pt has been on home O2 and steroids since April/May for SOB Has not had pulm workup due to COVID Now with CHF, PNA from bronchiectasis Abx, diuretics ECHO with EF 55-60%, neg for structural issues COPD dx as well, no hx of home inhaler use Steroid taper (4) Diabetes: Insulin drip on admission, ICU glucose protocol A1c 10.9 (5) Pneumonia: Noted on CXR Abx as above (6) DVT prophylaxis: heparin (7) Closed compression fracture of L2 vertebra: Patient has a closed compression fracture of L2. will continue to monitor her pain level. ordered calcitonin. Placed PT/OT consult. Admission and Anticipated Discharge Date Admission Date: January 04, 2020 Subjective Patient reports back pain is better, now moderate intensity. No worsening in her breathing. Review of Systems Review of Systems: All systems reviewed & are unremarkable except as noted in HPI & below Physical Exam Physical Exam: Constitutional: WD/WN, vitals as above Eyes: normal visual sweeney by confrontation and + anicteric sclerae Neck: normal visual inspection and trachea midline Respiratory: normal respiratory effort, lungs clear to auscultation Cardiovascular: Rate/Rhythm: regular rate and regular rhythm Extremities: + ed bev (R>L LE edema) Gastrointestinal (Abdomen): Inspection/Auscultation: abdomen not distended Percussion/Palpation: abdomen soft; abdomen nontender Musculoskeletal: Head/Neck/Chest: normocephalic and head atraumatic Skin: no rashes, warm and dry Neurologic: awake; not confused Speech / Cognition: normal speech Psychiatric: A+Ox3, euthymic affect Results & Data Results & Data ([facility]) Vital Signs (Past 12 Hours) Vital Signs Temp Pulse Resp BP Pulse Ox 01/08/20 19:40 36.6 C 108 H 25 H 103/75 92 01/08/20 15:54 36.7 C 107 H 19 129/81 91 01/08/20 11:10 37.1 C 106 H 19 108/80 96 PG Care Time/CCT Total # of Minutes Spent Total Time Spent with Patient: Total time spent is greater than 50% in coordination of care (as documented) at patient's floor/unit and/or counseling patient: Coding Level of Care Code 65555 Subseq Hosp Care Lvl 2 Diagnoses Sepsis A41.9 Hydronephrosis N13.30 Chronic respiratory failure with hypoxia J96.11 Diabetes E11.9 Pneumonia J18.9 DVT prophylaxis Z29.9 Closed compression fracture of L2 vertebra S32.020A Time Spent (min) 25
[2020-01-09] MEDS: ACETAMINOPHEN 325 MG TAB PO SCH ×4 (00:25→17:17)
[2020-01-09 06:31] LABS: Hematocrit (blood only) 36.9 % (37-47); Hemoglobin 11.9 g/dL (12.0-16.0); Mean Corpuscular Hemoglobin 30.1 pg (25-34); Mean Corpuscular Hgb Conc 32.2 g/dL (32-36); Mean Corpuscular Volume 93.2 fL (80-100); Mean Platelet Volume 10.3 fL (7.4-10.4); Platelet Count 468 K/uL (130-400); RDW Coefficient of Variation 14.8 % (11.5-14.5); RDW Standard Deviation 50.3 fL (36.4-46.3); Red Blood Count 3.96 M/uL (4.2-5.4); White Blood Count 14.47 K/uL (4.8-10.8)
[2020-01-09 07:03] LABS: Albumin Level 2.3 gm/dl (3.4-5.0); BUN Creatinine Ratio 24.5 (10-20); Calcium 9.2 mg/dl (8.5-10.1); Creatinine Clr Calc Pharmacy 98.9 ml/min; Est GFR (African American) 114.6; Est GFR (Non-African American) 98.9; Potassium 4.1 mmol/L (3.5-5.1)
[2020-01-09 07:07] LABS: Albumin Globulin Ratio 0.5 (0.9-2); Bilirubin,Total 0.3 mg/dl (0.2-1); Globulin 4.5 gm/dl (2.5-4.0); Total Protein 6.8 gm/dl (6.4-8.2)
[2020-01-09] MEDS: INSULIN GLARGINE SOLOSTAR 100 UNITS/ML 3 ML PEN SC SCH ×2 (09:30→20:33)
[2020-01-09] MEDS: HEPARIN SOD 5,000 UNIT/0.5 ML VIAL SQ SCH ×2 (09:37→20:33)
[2020-01-09] MEDS: INSULIN ASPART 100 UNITS/ML 3 ML PEN SC SCH ×4 (09:39→20:32)
[2020-01-09] MEDS: INSULIN HUMAN NPH SC SCH (09:40)
[2020-01-09] MEDS: METOPROLOL TARTRATE 25 MG TAB PO SCH ×2 (09:43→20:34)
[2020-01-09] MEDS: PHENAZOPYRIDINE HCL 200 MG TAB PO SCH (09:43)
[2020-01-09] MEDS: levoFLOXacin 750 MG TAB PO SCH (09:44)
[2020-01-09] MEDS: predniSONE 5 MG TAB PO SCH (09:45)
[2020-01-09] MEDS: PANTOprazole 40 MG TAB PO SCH (09:45)
[2020-01-09] MEDS: UMECLIDINIUM/VILANTEROL 62.5/25MCG 7 PUFFS/INHALER INH SCH (09:47)
[2020-01-09] MEDS: CALCITONIN SALMON NA 200 IU/AC 3.7 ML BTL SCH (09:47)
[2020-01-09] MEDS: FLUTICASONE FUROATE 100MCG 14 PUFFS/INHALER INH SCH (09:48)
[2020-01-09] MEDS: oxyCODONE/ACETAMINOPHEN 5mg/325mg TAB PO PRN ×2 (12:21→19:44)
[2020-01-09 13:16] LABS: Quantiferon Mitogen-NIL >10.00 IU/mL; Quantiferon NIL 0.03 IU/mL; Quantiferon TB Gold Plus NEGATIVE (NEGATIVE); Quantiferon TB1-NIL <0.00 IU/mL
--- NOTE | 2020-01-09 13:21 | Pharmacy Report ---
Pharmacy Glycemic Short Note 2 - Date of Service January 09, 2020 - Glycemic Short BSG Results (Last 24 hours): 01/08/20 01/08/20 01/09/20 16:29 19:55 05:34 Glucose 111 H POC Glucose 222 H 150 H 01/09/20 01/09/20 07:14 11:36 Glucose POC Glucose 118 H 175 H OUTPATIENT ANTIDIABETIC REGIMEN: * metformin, glimepiride ASSESSMENT: 01/08 * Patient received 90 units of insulin yesterday, 60 of basal (40 of lantus, 20 NPH) and 30 of correctional/prandial * BSGs improved today, fasting 118 mg/dL this morning. Currently continuing on prednisone 15 mg which is covered with the additional 20 units of NPH. * Will continue current parameters, carb ratio was tightened yesterday with improvement in lunchtim BSG today. Will continue to monitor. 01/05 * Patient fasting was adequate this morning (after 20 units basal, 5 units bolus insulin yesterday), however lunchtime BSG was significantly elevated. This is likely due to the fact patient was started on a diet and prednisone 15mg this morning. Lantus scale was empirically increased this morning and additional dose was administered at lunchtime. The novolog scale was also tightened to start this evening. Would consider a small IV bolus if BSG> 250mg/dL this evening. * Tomorrow will plan on administering NPH in addition to lantus to better cover the effects of the prednisone. 01/04 * 59 year-old female patient, with multiple comorbidities, admitted with suspected UTI, sepsis, and lower back pain secondary to large obstructing stone/hydronephrosis. * Type 2 diabetic managed only on oral agents at home. A1c on admission elevated at 10.9% * Initially started on insulin drip yesterday, ut'ed after about ~3-4 hours (running at 3.5 units/hr) * BSGs overnight on lower end of range 90-100s. BSG this AM 108 mg/dL - plan to hold basal * Lunch BSG trending up to 221 mg/dL, however patient now started on prednisone which likely is contributing to BSG value. Patient NPO for OR today. Anticipate BSGs to continue to trend up as now behind with steroids started. Plan to give basal 10 units x 1 now before OR and add scale for basal at HS PLAN FOR INPATIENT GLYCEMIC CONTROL: * Hold outpatient oral diabetes medications * Basal insulin * Lantus 20 units BID * NPH 20 units qAM if prednisone given * Bolus insulin * NovoLog per scale ACHS or Q6hrs while NPO * Goal Range: Low 120 mg/dL - High 150 mg/dL * Correction Factor: 15 mg/dL/unit * Nutritional / Prandial insulin per carb ratio of 1 unit per 4 grams CHO consumed PLAN FOR DISCHARGE: * tbd
--- NOTE | 2020-01-09 14:40 | XRay Report ---
XR chest 2V PA/lateral CLINICAL HISTORY: hypoxia COMPARISON STUDY: 01/04/2020 FINDINGS: The heart remains enlarged. There is diffuse elevation of interstitium, likely representing pulmonary edema although interstitial infectious/inflammatory processes could appear similar. There are small bilateral pleural effusions. There is slight improvement in the more focal right upper lobe airspace opacities.[ IMPRESSION: 1. Persistent pulmonary edema pattern. It should be noted that a bilateral infectious/inflammatory pr ocesses could appear similar 2. Small pleural effusions 3. Slight improvement in the more focal right upper lobe airspace opacities ACT 112: Negative or not required by law. Electronically signed by: Balwinder Quinones M.D. 01/09/2020 2:39 PM
[2020-01-09] MEDS: TAMSULOSIN HCL 0.4 MG CAP PO SCH (20:34)
[2020-01-09] MEDS: LEVALBUTEROL HCL 1.25 MG/3 ML NEB NEB SCH (20:40)
[2020-01-09] MEDS: MAGNESIUM OXIDE 400 MG TAB PO SCH (22:14)
--- NOTE | 2020-01-09 22:18 | Hospitalist Progress Note ---
Date of Service January 09, 2020 Assessment & Plan (1) Sepsis: Concern for this at [facility], possible urosepsis/ bronchiectasis VSS now s/p zosyn, vanco Continue abx, now levofloxacin to cover UTI and organisms from a pneumonia complicated from bronchiectasis. Plan is to be on levofloxacn fora minimum of 7 days. Today is day 4. COVID neg at [facility] Flu neg Nasal cannula is at 6 liters, (home dose is 4 liters) will keep patient as pain is not controlled, and ids requiring a higher amount of oxygen. may consider diuretics, will check BNP in AM. Ordered levalbuterol for 24 hours. (2) Hydronephrosis: Likely secondary to obstruction from kidney stone Case was reported to have been d/w Dr. Hebert by Dr. Olsen at [facility] prior to transfer S/P ureteral stenting. Continue with abx UA + for leuk est, neg nitrites Urine cxpansensitve e. coli Plan is for patient to followup with urollogy after 10-14 days of antibiotics (3) Chronic respiratory failure with hypoxia: Pt has been on home O2 and steroids since April/May for SOB Has not had pulm workup due to COVID Now with CHF, PNA from bronchiectasis Abx. Patient not presenting with signs of CHF, diuretics held. Unsure why patient is requiring more oxygen. will check labs in AM. Placed on nebs for 24 hours and flutter valve, if no improvement, may consider reinstituting diuretics. ECHO with EF 55-60%, neg for structural issues COPD dx as well, no hx of home inhaler use Slow Steroid taper (4) Diabetes: Insulin drip on admission, ICU glucose protocol A1c 10.9 (5) Pneumonia: Noted on CXR Abx as above (6) DVT prophylaxis: heparin (7) Closed compression fracture of L2 vertebra: Patient has a closed compression fracture of L2. will continue to monitor her pain level. ordered calcitonin (nasal), for about a 2 week course. Pain appears better controlled. Placed PT/OT consult. Admission and Anticipated Discharge Date Admission Date: January 04, 2020 Subjective 59 yo female reports that her back pain is about a 6-7 out of 10. She reorts no new symptoms. Review of Systems 2 Review of Systems: All systems reviewed & are unremarkable except as noted in HPI & below Physical Exam Physical Exam: Constitutional: WD/WN, vitals as above Eyes: normal visual sweeney by confrontation and + anicteric sclerae Neck: normal visual inspection and trachea midline Respiratory: normal respiratory effort, lungs clear to auscultation Cardiovascular: Rate/Rhythm: regular rate and regular rhythm Extremities: + edema (R>L LE edema) Gastrointestinal (Abdomen): Inspection/Auscultation: abdomen not distended Percussion/Palpation: abdomen soft; abdomen nontender Musculoskeletal: Head/Neck/Chest: normocephalic and head atraumatic Skin: no rashes, warm and dry Neurologic: awake; not confused Speech / Cognition: normal speech Psychiatric: A+Ox3, euthymic affect Results & Data Results & Data ([facility]) Vital Signs (Past 12 Hours) Vital Signs Temp Pulse Pulse Resp BP Pulse Ox 01/09/20 20:40 110 H 22 91 01/09/20 19:04 36.5 C 57 L 20 105/69 92 01/09/20 16:00 96 H 01/09/20 13:52 93 01/09/20 11:35 36.4 C L 105 H 20 116/71 91 01/09/20 11:34 110 H PG Care Time/CCT Total # of Minutes Spent Total Time Spent with Patient: Total time spent is greater than 50% in coordination of care (as documented) at patient's floor/unit and/or counseling patient: Coding Level of Care Code 42708 Subseq Hosp Care Lvl 3 Diagnoses Sepsis A41.9 Hydronephrosis N13.30 Chronic respiratory failure with hypoxia J96.11 Diabetes E11.9 Pneumonia J18.9 DVT prophylaxis Z29.9 Closed compression fracture of L2 vertebra S32.020A Time Spent (min) 35
[2020-01-10] MEDS: LEVALBUTEROL HCL 1.25 MG/3 ML NEB NEB SCH ×3 (00:40→12:57)
[2020-01-10] MEDS: ACETAMINOPHEN 325 MG TAB PO SCH ×5 (00:59→21:29)
[2020-01-10] MEDS: oxyCODONE/ACETAMINOPHEN 5mg/325mg TAB PO PRN ×4 (05:36→20:41)
[2020-01-10 07:59] LABS: Hematocrit (blood only) 35.6 % (37-47); Hemoglobin 11.6 g/dL (12.0-16.0); Mean Corpuscular Hemoglobin 29.9 pg (25-34); Mean Corpuscular Hgb Conc 32.6 g/dL (32-36); Mean Corpuscular Volume 91.8 fL (80-100); Mean Platelet Volume 10.2 fL (7.4-10.4); Platelet Count 461 K/uL (130-400); RDW Coefficient of Variation 14.9 % (11.5-14.5); RDW Standard Deviation 49.7 fL (36.4-46.3); Red Blood Count 3.88 M/uL (4.2-5.4); White Blood Count 15.85 K/uL (4.8-10.8)
[2020-01-10 08:25] LABS: BUN Creatinine Ratio 25.3 (10-20); Creatinine Clr Calc Pharmacy 131.4 ml/min; Est GFR (African American) 126.2; Est GFR (Non-African American) 108.9; Potassium 3.4 mmol/L (3.5-5.1)
[2020-01-10] MEDS: INSULIN ASPART 100 UNITS/ML 3 ML PEN SC SCH ×4 (08:30→20:34)
[2020-01-10] MEDS: INSULIN HUMAN NPH SC SCH (08:36)
[2020-01-10] MEDS: UMECLIDINIUM/VILANTEROL 62.5/25MCG 7 PUFFS/INHALER INH SCH (08:37)
[2020-01-10] MEDS: FLUTICASONE FUROATE 100MCG 14 PUFFS/INHALER INH SCH (08:39)
[2020-01-10] MEDS: CALCITONIN SALMON NA 200 IU/AC 3.7 ML BTL SCH (08:39)
[2020-01-10] MEDS: INSULIN GLARGINE SOLOSTAR 100 UNITS/ML 3 ML PEN SC SCH ×2 (08:40→20:33)
[2020-01-10] MEDS: METOPROLOL TARTRATE 25 MG TAB PO SCH ×2 (08:41→20:01)
[2020-01-10] MEDS: predniSONE 5 MG TAB PO SCH (08:42)
[2020-01-10] MEDS: HEPARIN SOD 5,000 UNIT/0.5 ML VIAL SQ SCH ×2 (08:42→20:01)
[2020-01-10] MEDS: levoFLOXacin 750 MG TAB PO SCH (09:50)
--- NOTE | 2020-01-10 12:34 | Pulmonary Consultation ---
Date of Consultation January 10, 2020 Assessment & Plan (1) Chronic respiratory failure with hypoxia: It appears that the patient is near her baseline oxygen requirements. I would recommend trying to wean her steroids down further to 12.5 mg prior to discharge as long-term prednisone does lead to significant side effects and has increased morbidity/mortality associated with it. Ideally, she should be weaned off entirely over a period of several weeks to months. Recommend obtaining a r epeat CT chest in 4 to 6 weeks to follow-up on the upper lobe consolidations. I suspect that the upper lobe lesions are more likely emphysematous changes that are appearing cystic/cavitary like due to the superimposed consolidative process. Her QuantiFERON gold testing was negative. She does have diffuse mosaicism which may be a reflection of air trapping and/or volume overload. Recommend continued diuretic therapy. She will need a PFT as an outpatient. Recommend complete smoking cessation. Her BMI is 39.3. Weight loss is advised. Sleep disordered breathing is likely playing a role here as well such as obstructive sleep apnea. Sleep study as an outpatient would be beneficial. Continue her current inhaler regimen. Physical and occupational therapy would be beneficial. Pulmonary rehab would be beneficial as well as an outpatient. She does appear severely deconditioned and chronically weak. Pulmonary will sign off at this time. We are available to help should the need arise. Thank you for the consult. (2) Pneumonia: (3) Obesity: (4) Abnormal CT scan, chest: History of Present Illness Reason for Consultation: Hypoxemia and emphysema Requesting Physician: Dr. Marv Huber Attending Physician: Marv Huber MD History of Present Illness This is a 59-year-old female with a past medical history of obesity with a BMI of 39.3, tobacco abuse, L2 compression fracture who presented from [facility] as a direct transfer from the emergency department due to urgent urological evaluation and treatment for obstructing renal stone. She had nausea and vomiting on the way to [facility]. She was admitted to the intensive care unit. She was found to have a large obstructing 2.7 cm right UPJ stone with moderate amount of hydronephrosis. She underwent a cystoscopy and a right retrograde pyelogram and right stent placement. She was seen by my colleague in the intensive care unit and evaluated for possible tuberculosis as there is concern of a cavitary lesion in the right upper lobe based on CT chest imaging. QuantiFERON gold testing was negative. She also has bilateral effusions noted on the CT chest. Mosaicism and upper lobe cystic/emphysematous changes noted. proBNP was elevated and she was diuresed. There is mention of bronchiectasis, but I do not see any evidence of bronchiectasis. She had a na chelita MRSA screen which was negative. Influenza a and B were negative. Sputum cultures have been negative except for white normal riri. Blood cultures have been negative. Urine cultures with 3 types of organisms with all moderate counts. She is currently on levofloxacin 750 mg p.o. daily. She is on 15 mg of prednisone daily. She has a history of adrenal insufficiency secondary to chronic steroid use. Patient notes that she has been on prednisone since May at a dose of 20 mg. She does not get around much in her home. She is a wheelchair and a walker. She notes that she quit smoking roughly 7 days ago. She smoked roughly half a pack of cigarettes a day for 20 to 30 years. She lives with her and 2 children. They have 1 dog and 1 cat[place] No history of bird exposure. 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 Her works in construction. 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 She has been on oxygen since early spring. She is chronically on 3 to 4 L of oxygen. She notes that she was supposed to follow-up with her portable grinding machine operator, but ultimately did not due to the COVID-19 pandemic. She was supposed to see Dr. Whitt. Allergies Allergy/AdvReac Type Severity Reaction Status Date / Time No Known Allergies Allergy Mild Verified 03/26/03 20:51 Home Medications Home Medications Medication Instructions Recorded Confirmed Type aspirin 81 mg PO 01/04/20 History glimepiride 4 mg PO DAILY 01/04/20 01/04/20 History metformin 1,000 mg PO BID 01/04/20 01/04/20 History prednisone 20 mg PO DAILY 01/04/20 01/04/20 History Patient History Medical History Chronic respiratory failure with hypoxia Diabetes Obesity Smoker Social History Smoking Status: Current every day smoker Cigarettes Per Day: 2; Hx Alcohol Use: Yes Hx Substance Use: No Preferred Language: Guyanese Communication Ability: Effective Supervisor Grinding Required: No Beliefs That Will Affect Care: None Current Living Situation: Spouse Feels Safe at Home: Yes Assistive Devices: Oxygen - Continuous and Walker Review of Systems Review of Systems: All systems reviewed & are unremarkable except as noted in HPI & below Physical Exam Constitutional: + obese Chronically ill-appearing. Appears much older than stated age. Eyes: PERRL, conjunctivae normal, anicteric sclerae ENMT: Ears: + hearing impairment Tenorio face present Neck: normal visual inspection Respiratory: normal respiratory effort, lungs clear to auscultation Cardiovascular: Rate/Rhythm: regular rate and regular rhythm Extremities: + edema Gastrointestinal (Abdomen): normal bowel sounds, soft, nontender, no hepatosplenomegaly Musculoskeletal: Kendall hump noted Skin: no rashes, warm and dry Neurologic: PERRL, EOMI, accommodation nl, no face palsy, no dysarthria Psychiatric: A+Ox3, euthymic affect Results & Data Results & Data ([facility]) Vital Signs (Past 12 Hours) Vital Signs Temp Pulse Pulse Pulse Pulse Resp BP 01/10/20 12:08 97.9 F 104 H 18 142/76 H 01/10/20 08:03 97.9 F 94 H 19 127/80 01/10/20 07:39 89 01/10/20 07:25 91 H 18 01/10/20 03:00 97.9 F 92 H 20 116/81 01/10/20 00:41 90 18 Pulse Ox 01/10/20 12:08 95 01/10/20 08:03 93 01/10/20 07:39 01/10/20 07:25 94 01/10/20 03:00 90 01/10/20 00:41 94 I reviewed the vital signs, labs and imaging PG Care Time/CCT Total # of Minutes Spent Total Time Spent with Patient: Total time spent is greater than 50% in coordination of care (as documented) at patient's floor/unit and/or counseling patient: Coding Level of Care Code 98345 Inpt Consult Level 4 Diagnoses Chronic respiratory failure with hypoxia J96.11 Pneumonia J18.[address] scan, chest R93.89
--- NOTE | 2020-01-10 15:15 | Hospitalist Progress Note ---
Date of Service January 10, 2020 Assessment & Plan (1) Sepsis: Concern for this at [facility], possible urosepsis. RIGHT kidney stone requiring stenting. - S/p right stent placement on 01/05/[address] Earnest Colbert - Continue levofloxacin x 10 days. - Follow up with urology in 1-2 weeks for stent and stone removal. (2) Pneumonia: Noted on CXR - Abx as above (3) Hydronephrosis: Secondary to obstruction from kidney stone. S/P ureteral stenting. Cultures negative at [facility], but they were done after antibiotics given. - As above (4) Chronic respiratory failure with hypoxia: Pt has been on home O2 and steroids since for SOB. Unclear why the steroids. - Has not had pulm workup due to COVID - ECHO with EF 55-60%, neg for structural issues - COPD dx as well, no hx of home inhaler use - Slow Steroid taper - Seen by pulmonology with recommendations for tapering steroids, stopping smoking, PFTs as an outpatient, sleep study, and pulmonology follow up with Dr. Whitt. (5) Diabetes: A1c was 10.9%. Insulin drip on admission, ICU glucose protocol. - Sugars better controlled today. (6) Closed compression fracture of L2 vertebra: Patient has a closed compression fracture of L2. - Continue calcitonin (nasal), for about a 2 week course. - Pain appears better controlled today. - PT/OT recommend home services. (7) DVT prophylaxis: Heparin 5,000 units SQ Q12h Admission and Anticipated Discharge Date Admission Date: January 04, 2020 Subjective No major concerns today. She reports her breathing is doing quite well. No dysuria. Reports no fevers/chills, chest pain, shortness of breath, abdominal pain, nausea, or vomiting. Physical Exam Constitutional: WD/WN, vitals as above Eyes: EOM intact bilaterally; no conjunctival abnormality ENMT: external ear and nose normal, oropharynx normal Neck: trachea midline, no thyromegaly normal visual inspection Respiratory: normal respiratory effort, lungs clear to auscultation no respiratory distress Cardiovascular: RRR, no murmur, no edema Gastrointestinal (Abdomen): Inspection/Auscultation: abdomen normal to inspection; abdomen not distended Musculoskeletal: no cyanosis or clubbing, extremities motor strength 5/5 Skin: no rashes, warm and dry Neurologic: moves all extremities and awake Psychiatric: Orientation: alert, oriented to person and cooperative Results & Data Results & Data ([facility]) Vital Signs (Past 12 Hours) Vital Signs Temp Pulse Pulse Pulse Resp BP Pulse Ox 01/10/20 12:57 89 17 93 01/10/20 12:08 36.6 C 104 H 18 142/76 H 95 01/10/20 08:03 36.6 C 94 H 19 127/80 93 01/10/20 07:39 89 01/10/20 07:25 91 H 18 94 PG Care Time/CCT Total # of Minutes Spent Total Time Spent with Patient: Total time spent is greater than 50% in coordination of care (as documented) at patient's floor/unit and/or counseling patient: Coding Level of Care Code 09017 Subseq Hosp Care Lvl 2 Diagnoses Sepsis A41.9 Pneumonia J18.9 Hydronephrosis N13.30 Chronic respiratory failure with hypoxia J96.11 Diabetes E11.9 Closed compression fracture of L2 vertebra S32.020A DVT prophylaxis Z29.9
[2020-01-10] MEDS ORDERED: ALBUT/IPRATROP 3MG/0.5MG NEB 3 ML VIAL NEB PRN (15:16)
[2020-01-10] MEDS ORDERED: POLYETHYLENE (MIRALAX) 17 GM PACK PO ONE (15:30)
[2020-01-10] MEDS: MAGNESIUM OXIDE 400 MG TAB PO SCH (20:01)
[2020-01-10] MEDS: TAMSULOSIN HCL 0.4 MG CAP PO SCH (20:01)
[2020-01-11] MEDS: ACETAMINOPHEN 325 MG TAB PO SCH ×4 (04:45→21:40)
[2020-01-11] MEDS ORDERED: MAGNESIUM HYDROXIDE SUSP 30 ML UDC PO ONE (06:34)
[2020-01-11 06:36] LABS: Hematocrit (blood only) 36.9 % (37-47); Hemoglobin 11.9 g/dL (12.0-16.0); Mean Corpuscular Hemoglobin 29.8 pg (25-34); Mean Corpuscular Hgb Conc 32.2 g/dL (32-36); Mean Corpuscular Volume 92.5 fL (80-100); Mean Platelet Volume 9.9 fL (7.4-10.4); Platelet Count 464 K/uL (130-400); RDW Coefficient of Variation 15.2 % (11.5-14.5); RDW Standard Deviation 50.9 fL (36.4-46.3); Red Blood Count 3.99 M/uL (4.2-5.4); White Blood Count 14.37 K/uL (4.8-10.8)
[2020-01-11 07:12] LABS: BUN Creatinine Ratio 25.5 (10-20); Calcium 9.5 mg/dl (8.5-10.1); Creatinine Clr Calc Pharmacy 110.2 ml/min; Est GFR (African American) 119.1; Est GFR (Non-African American) 102.8
[2020-01-11] MEDS: METOPROLOL TARTRATE 25 MG TAB PO SCH ×2 (08:23→20:58)
[2020-01-11] MEDS: POLYETHYLENE (MIRALAX) 17 GM PACK PO SCH (08:23)
[2020-01-11] MEDS: UMECLIDINIUM/VILANTEROL 62.5/25MCG 7 PUFFS/INHALER INH SCH (08:24)
[2020-01-11] MEDS: oxyCODONE/ACETAMINOPHEN 5mg/325mg TAB PO PRN ×3 (08:24→23:38)
[2020-01-11] MEDS: FLUTICASONE FUROATE 100MCG 14 PUFFS/INHALER INH SCH (08:24)
[2020-01-11] MEDS: CALCITONIN SALMON NA 200 IU/AC 3.7 ML BTL SCH (08:25)
[2020-01-11] MEDS: INSULIN HUMAN NPH SC SCH (08:25)
[2020-01-11] MEDS: INSULIN GLARGINE SOLOSTAR 100 UNITS/ML 3 ML PEN SC SCH ×2 (08:27→20:56)
[2020-01-11] MEDS: INSULIN ASPART 100 UNITS/ML 3 ML PEN SC SCH ×4 (08:28→20:58)
[2020-01-11] MEDS: HEPARIN SOD 5,000 UNIT/0.5 ML VIAL SQ SCH ×2 (08:30→20:56)
--- NOTE | 2020-01-11 10:11 | Pharmacy Report ---
Pharmacy Glycemic Short Note 2 - Date of Service January 11, 2020 - Glycemic Short BSG Results (Last 24 hours): 01/10/20 01/10/20 01/10/20 11:54 16:34 20:30 Glucose POC Glucose 148 H 202 H 122 H 01/11/20 01/11/20 06:12 07:24 Glucose 122 H POC Glucose 183 H OUTPATIENT ANTIDIABETIC REGIMEN: * metformin, glimepiride ASSESSMENT: 01/10: * Patient received 121 units of SQ insulin yesterday: * 60 units of basal (Lantus + NPH) * 61 units of bolus * BSGs were well controlled with the exception of 202 mg/dL at dinnertime * Fasting BSG has been trending upward (118, 164, 183 mg/dL) * will increase Lantus by ~13% * Post prandial BSGs were acceptable yesterday. Patient remains on prednisone 15 mg po per day. * will increase NPH dose to allow for additional evening coverage 01/08 * Patient received 90 units of insulin yesterday, 60 of basal (40 of lantus, 20 NPH) and 30 of correctional/prandial * BSGs improved today, fasting 118 mg/dL this morning. Currently continuing on prednisone 15 mg which is covered with the additional 20 units of NPH. * Will continue current parameters, carb ratio was tightened yesterday with improvement in lunchtim BSG today. Will continue to monitor. 01/05 * Patient fasting was adequate this morning (after 20 units basal, 5 units bolus insulin yesterday), however lunchtime BSG was significantly elevated. This is likely due to the fact patient was started on a diet and prednisone 15mg this morning. Lantus scale was empirically increased this morning and additional dose was administered at lunchtime. The novolog scale was also tightened to start this evening. Would consider a small IV bolus if BSG> 250mg/dL this evening. * Tomorrow will plan on administering NPH in addition to lantus to better cover the effects of the prednisone. 01/04 * 59 year-old female patient, with multiple comorbidities, admitted with suspected UTI, sepsis, and lower back pain secondary to large obstructing stone/hydronephrosis. * Type 2 diabetic managed only on oral agents at home. A1c on admission elevated at 10.9% * Initially started on insulin drip yesterday, dc'ed after about ~3-4 hours (running at 3.5 units/hr) * BSGs overnight on lower end of range 90-100s. BSG this AM 108 mg/dL - plan to hold basal * Lunch BSG trending up to 221 mg/dL, however patient now started on prednisone which likely is contributing to BSG value. Patient NPO for OR today. Anticipate BSGs to continue to trend up as now behind with steroids started. Plan to give basal 10 units x 1 now before OR and add scale for basal at HS PLAN FOR INPATIENT GLYCEMIC CONTROL: * Hold outpatient oral diabetes medications * Basal insulin * Increase Lantus to 20-25 units BID: - 20 units for BSG < 140, 25 units for BSG 140 or more * Increase NPH to 25 units qAM - to be given with prednisone * Bolus insulin * NovoLog per scale ACHS or Q6hrs while NPO * Goal Range: Low 120 mg/dL - High 150 mg/dL * Correction Factor: 15 mg/dL/unit * Nutritional / Prandial insulin per carb ratio of 1 unit per 4 grams CHO consumed PLAN FOR DISCHARGE: * A1c = 10.9%. Elevation is likely due to chronic prednisone use (started in April/May of this year per physician progress notes) * Pulmonology recommending steroid taper as tolerated * Recommend the addition of once daily NPH while on once daily steroid: * Prednisone 15 mg/day: give NPH 25 units daily with prednisone * Prednisone 10-12.5 mg/day: give NPH 18 units daily with prednisone * Patient may also benefit from addition of once daily long acting basal insulin (Lantus/Levemir) if steroid taper is not tolerated
[2020-01-11] MEDS: levoFLOXacin 750 MG TAB PO SCH (11:01)
--- NOTE | 2020-01-11 13:01 | Hospitalist Progress Note ---
Date of Service January 11, 2020 Assessment & Plan (1) Sepsis: Concern for this at [facility], possible urosepsis. RIGHT kidney stone requiring stenting. - S/p right stent placement on 01/05/[address] Earnest Colbert - Continue levofloxacin x 10 days. - Follow up with urology in 1-2 weeks for stent and stone removal. (2) Pneumonia: Noted on CXR - Abx as above (3) Hydronephrosis: Secondary to obstruction from kidney stone. S/P ureteral stenting. Cultures negative at [facility], but they were done after antibiotics given. - As above (4) Chronic respiratory failure with hypoxia: Pt has been on home O2 and steroids since for SOB. Unclear why the steroids. - Has not had pulm workup due to COVID - ECHO with EF 55-60%, neg for structural issues - COPD dx as well, no hx of home inhaler use - Slow Steroid taper - Seen by pulmonology with recommendations for tapering steroids, stopping smoking, PFTs as an outpatient, sleep study, and pulmonology follow up with Dr. Whitt. (5) Diabetes: A1c was 10.9%. Insulin drip on admission, ICU glucose protocol. - Sugars better controlled today - Mostly 130 - 200. (6) Closed compression fracture of L2 vertebra: Patient has a closed compression fracture of L2. - Continue calcitonin (nasal), for about a 2 week course. - Pain appears not as well controlled today. Will add lidocaine patch. - PT/OT recommend home services. (7) DVT prophylaxis: Heparin 5,000 units SQ Q12h Admission and Anticipated Discharge Date Admission Date: January 04, 2020 Subjective Still with pain the back today. Making her very tearful. Reports no fevers/chills, chest pain, shortness of breath, abdominal pain, nausea, or vomiting. Physical Exam Constitutional: WD/WN, vitals as above Eyes: EOM intact bilaterally; no conjunctival abnormality ENMT: external ear and nose normal, oropharynx normal Neck: trachea midline, no thyromegaly normal visual inspection Respiratory: normal respiratory effort, lungs clear to auscultation no respiratory distress Cardiovascular: RRR, no murmur, no edema Gastrointestinal (Abdomen): Inspection/Auscultation: abdomen normal to inspection; abdomen not distended Musculoskeletal: no cyanosis or clubbing, extremities motor strength 5/5 Skin: no rashes, warm and dry Neurologic: moves all extremities and awake Psychiatric: Orientation: alert, oriented to person and cooperative Results & Data Results & Data ([facility]) Vital Signs (Past 12 Hours) Vital Signs Temp Pulse Pulse Resp BP BP Pulse Ox 01/11/20 12:32 106 H 01/11/20 12:21 122 H 01/11/20 11:32 36.5 C 100 H 18 122/78 92 01/11/20 07:12 36.9 C 107 H 18 130/84 92 01/11/20 03:00 36.7 C 98 H 20 117/82 95 PG Care Time/CCT Total # of Minutes Spent Total Time Spent with Patient: Total time spent is greater than 50% in coordination of care (as documented) at patient's floor/unit and/or counseling patient: Coding Level of Care Code 67158 Subseq Hosp Care Lvl 2 Diagnoses Sepsis A41.9 Pneumonia J18.9 Hydronephrosis N13.30 Chronic respiratory failure with hypoxia J96.11 Diabetes E11.9 Closed compression fracture of L2 vertebra S32.020A DVT prophylaxis Z29.9
[2020-01-11] MEDS: LIDOCAINE 5% 1 PATCH TD SCH (13:30)
[2020-01-11] MEDS: predniSONE 10 MG TABLET PO SCH (13:30)
[2020-01-11] MEDS ORDERED: bisacodyL 10 MG SUPP PR PRN (15:38)
[2020-01-11] MEDS ORDERED: MELATONIN 3 MG TAB PO PRN (20:44)
[2020-01-11] MEDS: TAMSULOSIN HCL 0.4 MG CAP PO SCH (20:58)
[2020-01-11] MEDS: MAGNESIUM OXIDE 400 MG TAB PO SCH (20:58)
[2020-01-12] MEDS: ACETAMINOPHEN 325 MG TAB PO SCH ×2 (04:59→11:19)
[2020-01-12] MEDS: oxyCODONE/ACETAMINOPHEN 5mg/325mg TAB PO PRN ×2 (06:44→11:18)
[2020-01-12] MEDS: INSULIN HUMAN NPH SC SCH (07:55)
[2020-01-12] MEDS: INSULIN GLARGINE SOLOSTAR 100 UNITS/ML 3 ML PEN SC SCH (07:55)
[2020-01-12] MEDS: INSULIN ASPART 100 UNITS/ML 3 ML PEN SC SCH ×2 (08:00→12:04)
[2020-01-12] MEDS: FLUTICASONE FUROATE 100MCG 14 PUFFS/INHALER INH SCH (08:02)
[2020-01-12] MEDS: CALCITONIN SALMON NA 200 IU/AC 3.7 ML BTL SCH (08:03)
[2020-01-12] MEDS: UMECLIDINIUM/VILANTEROL 62.5/25MCG 7 PUFFS/INHALER INH SCH (08:03)
[2020-01-12] MEDS: LIDOCAINE 5% 1 PATCH TD SCH (08:03)
[2020-01-12] MEDS: predniSONE 10 MG TABLET PO SCH (08:04)
[2020-01-12] MEDS: HEPARIN SOD 5,000 UNIT/0.5 ML VIAL SQ SCH (08:04)
[2020-01-12] MEDS: POLYETHYLENE (MIRALAX) 17 GM PACK PO SCH (08:05)
[2020-01-12] MEDS: METOPROLOL TARTRATE 25 MG TAB PO SCH (08:39)
[2020-01-12] MEDS: levoFLOXacin 750 MG TAB PO SCH (10:01)
--- NOTE | 2020-01-12 17:56 | Discharge Summary ---
Date of Service January 12, 2020 Admission HPI Per Admitting Provider Pt was transferred from [facility] today for sepsis and need for urgent urologic eval and tx for obstructing renal stone. Pt states she still has back pain, but better. She had n/v on the way to [facility], but she feels she was car sick. This was not present prior. Pt denies fever, SOB, chest pain, abd pain, n/v/c/d, LE pain or swelling. Pt has been having ongoing SOB requiring O2 for several months. She was started on home O2 and was to have a pulm eval, however this did not happen due to COVID. She states she has not left her home since April. Pt was put on prednisone for these respiratory issues in April, but no improvement. It has not gotten worse either. Pt notes she also passed a stone last week. Pt has been on prednisone and this has caused a lot of issues with her blood sugars. Principal Diagnosis Pyelonephritis and obstruction Discharge Exam Constitutional WD/WN, vitals as above Eyes EOM intact bilaterally; no conjunctival abnormality ENMT external ear and nose normal, oropharynx normal Neck trachea midline, no thyromegaly normal visual inspection Respiratory normal respiratory effort, lungs clear to auscultation no respiratory distress Cardiovascular RRR, no murmur, no edema Gastrointestinal (Abdomen) Inspection/Auscultation: abdomen normal to inspection; abdomen not distended Musculoskeletal no cyanosis or clubbing, extremities motor strength 5/5 Skin no rashes, warm and dry Neurologic moves all extremities and awake Psychiatric Orientation: alert, oriented to person and cooperative Discharge Data Allergies Allergy/AdvReac Type Severity Reaction Status Date / Time No Known Allergies Allergy Mild Verified 03/26/03 20:51 Consultations 01/04/20 17:38 Consult Case Management - Discharge Planning Routine Consult Fitness Sales Consultant Routine 01/04/20 19:42 Consult Urology Routine 01/10/20 07:58 Consult Pulmonology Routine Procedures Performed Operation Date: 01/05/20 13:35 Actual Procedures p Cystoscopy, Right Stent Insertion - Earnest Colbert, Ordered Studies 01/05/20 13:00 FL retrograde includes kub Routine 01/06/20 09:54 CT abd pelvis IV con only Urgent CT chest w con Urgent Diabetes Follow up Diabetes Follow-up Needed for HgbA1c >9% Hospital Course (1) Sepsis: Concern for this at [facility], possible urosepsis. RIGHT kidney stone requiring stenting. - S/p right stent placement on 01/05/[address] Earnest Colbert - Continue levofloxacin x 10 days. - Follow up with urology in 1-2 weeks for stent and stone removal. (2) Pneumonia: Noted on CXR - Abx as above (3) Hydronephrosis: Secondary to obstruction from kidney stone. S/P ureteral stenting. Cultures negative at [facility], but they were done after antibiotics given. - As above (4) Chronic respiratory failure with hypoxia: Pt has been on home O2 and steroids since for SOB. Unclear why the steroids. - Has not had pulm workup due to COVID - ECHO with EF 55-60%, neg for structural issues - COPD dx as well, no hx of home inhaler use - Slow Steroid taper - Seen by pulmonology with recommendations for tapering steroids, stopping smoking, PFTs as an outpatient, sleep study, and pulmonology follow up with Dr. Whitt. (5) Diabetes: A1c was 10.9%. Insulin drip on admission, ICU glucose protocol. - Sugars better controlled today - Mostly 130 - 200. (6) Closed compression fracture of L2 vertebra: Patient has a closed compression fracture of L2. - Continue calcitonin (nasal), for about a 2 week course. - Pain appears not as well controlled today. Will add lidocaine patch. - PT/OT recommend home services. (7) DVT prophylaxis: Heparin 5,000 units SQ Q12h Total Time Total Time Spent Total Time Spent (In Minutes): 35 Discharge Plan Discharge Items Patient Disposition: Home - Self-Care Reason For Visit: SEPSIS, RIGHT PYELONEPHRITIS, OBSTRUCTING STONE Discharge Diagnosis: Right kidney infection Pneumonia Activity: Resume your previous activity Non-emergency contact: Primary Care Provider Call non-emergency contact if: your symptoms worsen and your temperature is above 101 Follow-up/Referrals: Kimberly Park CRNP [Nurse Practitioner] - 01/21/20 9:00 am (Phone visit) Kb Quezada MD [Physician] - (Dr. Quezada's office will call you to set up an appointment) Tanya Hurd MD [Primary Care Provider] - (Please call your primary care physician to make a follow-up discharge appoinment.) Diet: Carb Consistent or DM2 Addtl Attending Provider Instructions: You were admitted with a right kidney infection. The urology team put in a stent, and you will need to see them on January 20 to have it taken out and the kidney stone removed. Please take your levofloxacin (antibiotic) once per day until it is gone. Please take the lower dose of the prednisone 10 mg by mouth every day. Your PCP or utility tech should be able to help you continue to taper this. For your diabetes, we will send you on insulin. We're doing an inexpensive i nsulin through [employer]. You will do 20 units of Relion Novolin-N insulin every morning when you take your prednisone. Finally, for your breathing, we are sending you a once-a-day inhaler as well as a nebulizer with nebulizer treatments. Hopefully this will improve your breathing and make you feel better. Addtl Propeller Inspector Provider Instructions: You need to follow up a Right Kidney Cyst with your primary doctor in approximately 4 weeks for further evaluation - A renal protocol CT in one month is recommended to ensure resolution. You need to follow up swollen lymph nodes with your primary doctor in approximately 4 weeks for further evaluation - Likely a chest CT in one month is recommended Pending Studies at Discharge: No Stand-Alone Forms: My [facility] MAZ, Smoking Cessation Medications and DC Order Prescriptions: New ipratropium-albuterol 0.5 mg-3 mg(2.5 mg base)/3 mL Solution For Nebulization 3 ml NEB Q4R PRN (Reason: shortness of breath or wheezing) Qty: 90 RF: 0 levofloxacin 750 mg Tablet 750 mg PO DAILY@1100 Qty: 5 RF: 0 tamsulosin 0.4 mg Capsule 0.4 mg PO HS Qty: 14 RF: 0 Anoro Ellipta 62.5-25 mcg/actuation Blister With Device 1 ea inhalation DAILY Qty: 60 RF: 0 insulin NPH isoph U-100 human 100 unit/mL (3 mL) insulin pen 18 unit subcut DAILY Qty: 15 RF: 0 prednisone 10 mg Tablet 10 mg PO DAILY Qty: 20 RF: 0 lidocaine 5 % Adhesive Patch,Medicated 1 patch transdermal QAM Qty: 15 RF: 0 (DME) diabetic supplies, [employer]. Misc See Rx Instructions .ROUTE .MEDSUPPLY Qty: 30 RF: 0 Continued metformin 1,000 mg Tablet Extended Release 24hr 1,000 mg PO BID RF: 0 aspirin 81 mg Capsule,Delayed Release(Dr/Ec) 81 mg PO RF: 0 glimepiride 4 mg Tablet 4 mg PO DAILY RF: 0 Discontinued prednisone 20 mg Tablet 20 mg PO DAILY RF: 0 Discharge Orders: Discharge Order (Routine); Ordered 01/12/20 Ordered By: Marv Huber Admission Data Admit Date/Time: 01/04/20 17:38 Attending Provider: Marv Huber Admit Provider: Cristina Lilly Primary Care Provider: Tanya Hurd Other Providers: Kb Quezada ; Earnest Colbert ; Solitario Massey Other Interventions: Discharge Summary Assessment (RN) Last Done: 01/12/20 13:32 Coding Level of Care Code D/C Day Management >30 mins Diagnoses Sepsis A41.9 Pneumonia J18.9 Hydronephrosis N13.30 Chronic respiratory failure with hypoxia J96.11 Diabetes E11.9 Closed compression fracture of L2 vertebra S32.020A DVT prophylaxis Z29.9
== END 2020-01-12 14:58 | disposition home or self-care (01) | DRG 853 ==
LOC: 1E 17:38 → SUATTDRO 17:38 → 2S 01-06 10:05 → 2E 01-08 01:03 → 2N 01-09 11:21